=== PATIENT | female | born 1990 | race Caucasian/White ===

== ENCOUNTER 2017-04-10 20:04 | Emergency (ER) | payer MEDICAID, SELFPAY ==
[2017-04-10 20:06] VITALS: BP 151/85; PULSE 107; RESP 22; TEMP 36.8; O2SAT 100; BMI 38.9
--- NOTE | 2017-04-10 20:28 | RAD_ITS ---
STUDY: X-RAY CHEST REASON FOR EXAM: Female, 26 years old. Cough TECHNIQUE: PA and lateral views of the chest. COMPARISON: Previous study of 01/23/2015 FINDINGS: There is a stable 1.1 cm nodule of the left lower lobe. There is bilateral perihilar peribronchial cuffing. There is no demonstrated pleural abnormality. Normal size heart. Normal mediastinum and fernanda. Normal visualized pulmonary arteries. Normal visualized aortic arch and descending thoracic aorta. Normal visualized thoracic spine. Normal visualized ribs, clavicles, and shoulders. There is no demonstrated abnormality of the visualized soft tissue structures of the upper abdomen. RAD/Chest PA and Lateral IMPRESSION: Bilateral perihilar peribronchial cuffing which may be associated with bronchitis or bronchospastic disease. Stable 1.1 cm nodule of the left lower lobe. Electronically Signed: Charles Manuel MD at 21:05 EST , Service support ,
[2017-04-10] MEDS: Ipratropium/Albuterol Sulfate 3 ML AMPUL.NEB INHALATION (20:39)
[2017-04-10 20:40] VITALS: PULSE 99; RESP 18
--- NOTE | 2017-04-10 21:47 | ED.DCSUM_ITS ---
- ER Visit Summary Date of Service: 04/10/17 Chief Complaint: Cough and head congestion History of Present Illness: The patient is a 26 F with a four-day history of cough, head congestion, shortness of breath with wheezing. Patient states she was seen at urgent care 4 days ago and told she had a viral URI. She is currently on prednisone. She feels that she is not improving and may be even worsening. She does report having intermittent wheezing. She reports very minimal sputum production and denies significant chest congestion. She states she has had a low-grade fever up to 100.9 and has had chills. Physical Examination: Blood pressure is 151/85, temperature 98.2, heart rate 107 , respiratory rate 22, pulse ox 100% on room air. Patient is in no acute distress. Head and neck examination is remarkable for some mild posterior pharyngeal drainage. TMs are clear bilaterally. Heart is regular rate and rhythm. Palpable pulses are noted throughout. Lungs are clear with good air movement throughout. Abdomen is soft and nontender. Bowel sounds are noted. Extremity examination is unremarkable with full range of motion. Neurologic examination reveals no focal deficits. Test Results: Two-view chest x-ray reveals bilateral perihilar peribronchial cuffing which may be associated with bronchitis or bronchospasm. There is a stable 1.1 cm nodule in the left lower lobe. Emergency Department Course and Treatment: Patient was given a DuoNeb treatment here. On repeat evaluation she reports minimal improvement. Should be given albuterol inhaler for home and will be written Tessalon Perles to help control her cough. She does not want anything that sedates her due to the need to care for her children. She was advised her symptoms are all viral in nature and antibiotics will not be beneficial. She is given a work note for tomorrow. Treatment Plan: [] Disposition: Discharge Impression: Viral bronchitis This note was generated with [employer] dictation software. It may contain incorrect words, spelling, and punctuation that were not noted in review of the chart prior to signing ED Disposition - Plan for ED Patient: Disposition: Home or Assisted Living Chief Complaint: Cough Instructions: ED Upper Resp Infec No Abx Tx Prescriptions: Albuterol Inhaler [Ventolin Hfa] 1 - 2 puff INHALATION Q4H PRN PRN #1 inhaler PRN Reason: Wheezing Benzonatate [Tessalon Perle] 200 mg PO TID PRN PRN #20 capsule PRN Reason: Cough Referrals: Ben Holt DO [Primary Care Provider] - 1 Week if not improving
--- NOTE | 2017-04-10 21:51 | DCINST.ED_ITS ---
ED Disposition - Plan for ED Patient: Disposition: Home or Assisted Living Chief Complaint: Cough Instructions: ED Upper Resp Infec No Abx Tx Prescriptions: Albuterol Inhaler [Ventolin Hfa] 1 - 2 puff INHALATION Q4H PRN PRN #1 inhaler PRN Reason: Wheezing Benzonatate [Tessalon Perle] 200 mg PO TID PRN PRN #20 capsule PRN Reason: Cough Referrals: Ben Holt DO [Primary Care Provider] - 1 Week if not improving
[2017-04-10] MEDS: Benzonatate 100 MG Capsule 200 MG PO (21:56)
[2017-04-10 21:57] VITALS: BP 137/91; PULSE 114; RESP 16; O2SAT 99
== END 2017-04-10 21:59 | disposition home or self-care (01) ==
PROVIDERS: Emergency Provider Emergency Medicine; Family Provider Student in an Organized Health Care Education/Training Program; PCP Student in an Organized Health Care Education/Training Program
DX: J20.8 Acute bronchitis due to other specified organisms (principal); R91.1 Solitary pulmonary nodule; K58.9 Irritable bowel syndrome, unspecified; G43.909 Migraine, unspecified, not intractable, without status migrainosus; F31.9 Bipolar disorder, unspecified; K21.9 Gastro-esophageal reflux disease without esophagitis; Z79.52 Long term (current) use of systemic steroids; Z79.899 Other long term (current) drug therapy; Z87.891 Personal history of nicotine dependence
CPT/HCPCS: 71046; 94640; 99283

== ENCOUNTER 2017-06-09 18:15 | Emergency (ER) | payer MEDICAID, SELFPAY ==
[2017-06-09 18:16] VITALS: BP 129/80; PULSE 75; RESP 16; TEMP 36.7; O2SAT 99; BMI 40.4
--- NOTE | 2017-06-09 19:10 | CT_ITS ---
STUDY: CT ABDOMEN AND PELVIS WITH CONTRAST REASON FOR EXAM: Female, 26 years old. Right upper quadrant pain. RADIATION DOSAGE (If Supplied By Facility): CTDIvol = ( 16.51 ) mGy, DLP = ( 957.91 ) mGycm TECHNIQUE: Transaxial images were obtained from the dome of the diaphragm to the symphysis pubis with oral contrast. 100 ml of Isovue 300 contrast was administered. Sagittal and coronal images were reconstructed. Individualized dose optimization techniques were used for this CT. COMPARISON: None. FINDINGS: There is left lower lung granuloma. The visualized portions of the heart are within normal limits. Normal liver. There is non-visualization of the gallbladder, which may be secondary to either contraction or a prior cholecystectomy. There is a benign calcified granuloma of the spleen. Normal pancreas. Normal bilateral adrenal glands. Normal right kidney. Normal left kidney. Normal visualized stomach. Normal small intestine. Normal colon. The appendix is visualized and appears normal. Normal abdominal aorta. Normal inferior vena cava. Normal retroperitoneum. Normal urinary bladder. Normal visualized uterus. There are adnexal follicles. Normal abdominal wall. Normal osseous structures. CT/Abdomen/Pelvis WITH Contrast IMPRESSION: Normal enhanced CT of the abdomen and pelvis. No mass or obstruction. No hydronephrosis. Adnexal follicles. Electronically Signed: Scotty Griffin MD at 21:23 EDT , Service support ,
--- NOTE | 2017-06-09 19:15 | ED.DCSUM_ITS ---
- ER Visit Summary Date of Service: 06/09/17 Chief Complaint: Abdominal pain History of Present Illness: The patient is a 26 F presenting with abdominal pain that worsened since 1030 this morning. She states she has had intermittent pain over last couple weeks but worsened today. She has nausea with no vomiting. Denies diarrhea or constipation. She has dysuria and urinary frequency. She has a history of previous cholecystectomy. She denies fever or other complaints. Physical Examination: Vitals are stable. Patient is afebrile. Alert no acute distress. HEENT exam is unremarkable. Neck is supple. Lungs are clear and equal bilaterally. Heart is regular rate and rhythm. Abdomen is soft right upper quadrant tenderness with no rebound or guarding. Extremities are unremarkable. Skin is warm and dry. No focal neurologic deficit. Remainder of exam is unremarkable. Emergency Department Course and Treatment: CBC, chemistries unremarkable. Liver lipase are normal. Urinalysis shows 10-25 white blood cells, also 10-25 epithelial cells. HCG is negative. She is given IV fluids and Zofran. CT abdomen pelvis with IV and oral contrast shows no acute process. On repeat exam she has mild tenderness with no rebound or guarding. She is given prescription for Bentyl and Zofran. Her urine is contaminated but she does have dysuria and frequency. She will be given a course of Macrobid. She is advised to follow-up with her primary care physician. Advised return to ED if worsening complaints. Disposition: Discharge home Impression: Abdominal pain, UTI This note was generated with [employer] dictation software. It may contain incorrect words, spelling, and punctuation that were not noted in review of the chart prior to signing ED Disposition - Plan for ED Patient: Chief Complaint: Abd Pain Instructions: ED Abdominal Pain Unkn Cause Prescriptions: Ondansetron [Zofran Odt] 4 mg PO Q8H PRN PRN #10 tablet PRN Reason: Nausea Dicyclomine HCl [Bentyl] 20 mg PO TIDAC #20 capsule Nitrofurantoin Macrocrystals [Macrobid] 100 mg PO Q12 #14 capsule Referrals: Ben Holt DO [Primary Care Provider] -
[2017-06-09] MEDS: 0.9% Normal Saline 1,000 ML 1000 ML IV (19:29)
[2017-06-09] MEDS: Ondansetron 4 MG/2 ML Vial IV (19:29)
[2017-06-09 19:43] LABS: Absolute Lymphocyte Count 2.73 X10^3/ul (0.83-4.51); Absolute Neutrophil Count 3.8 X10^3/uL (2.0-7.7); Basophil# 0.03 X10^3/uL; Basophil% 0.4 % (0-1); Eosinophil# 0.13 X10^3/uL; Eosinophils% 1.9 % (0-5); Lymphocyte # 2.73 X10^3/ul (4.0); Mean Corp Hgb Conc 32.5 g/gl (32-36); Mean Corpuscular Hgb 28.1 pg (27.0-32.0); Mean Corpuscular Volume 86.4 fL (81-99); Mean Platelet Vol. 9.9 fl (6.2-12.0); Monocyte# 0.28 X10^3/uL; Neutrophil # 3.83 X10^3/uL (2.7-7.7); Neutrophil % 54.7 % (47-70); Platelet Count 248 K/mm3 (150-450); RBC Distribution Width CV 13.6 % (11.6-14.6); Red Blood Count 4.63 M/mm3 (4.2-5.4)
[2017-06-09 19:44] LABS: POSITIVE COUNT NO; POSITIVE DIFFERENTIAL NO; POSITIVE MORPHOLOGY NO
[2017-06-09 19:44] LABS: Red Blood Cells-Urine 0 SEEN /hpf (0-5)
[2017-06-09 19:58] LABS: Color, Urine Yellow (Yellow); Glucose, Dipstick Normal (Normal); Ketone-Dipstick Negative (Negative); Leukocyte Esterase-Dipstick 500 /ul (Negative); Nitrite-Dipstick Negative (Negative); Occult Blood-Urine Negative /ul (Negative); Protein-Dipstick Negative (Negative); Urine Bilirubin Dipstick Negative (Negative); Urine Clarity Sl. Cloudy (Clear); Urine Urobilinogen Normal (Normal)
[2017-06-09 20:15] VITALS: RESP 16
[2017-06-09 20:19] LABS: Bacteria RARE /hpf (None Seen); Mucous, Urine RARE /hpf (<or=2+); Squamous Epithelial Cells - UA 10-25 SEEN /hpf (5-10); White Blood Cells 10-25 SEEN /hpf (0-5)
[2017-06-09 20:20] LABS: Amorphous Sediment 1+ URATE
[2017-06-09 20:21] LABS: AST(SGOT) 13 U/L (15-37); Alanine Aminotransfer ALT/SGPT 23 U/L (13-56); Albumin, Serum 3.7 g/dL (3.2-5.0); Alkaline Phosphatase 118 U/L (45-117); Anion Gap 6 (5-15); BUN 9 mg/dL (7-18); BUN/Creat Ratio 13.9 RATIO (10-20); Bilirubin, Direct 0.08 mg/dL (0.00-0.30); Calcium,Total 8.2 mg/dL (8.5-10.1); Chloride 108 mmol/L (98-107); Creatinine, Serum 0.65 mg/dL (0.55-1.02); EST Glomerular Filtration Rate 117 mL/min (>60); Est Glom Filt Rate - Afr Amer 142 mL/min (>60); Estimated Creatinine Clearance 94.21 ml/min; Globulin 3.7 g/dL (2.2-4.2); Glucose 85 mg/dL (74-106); Lipase 102 U/L (73-393); Potassium 3.8 mmol/L (3.5-5.1); Protein, Total 7.4 g/dL (6.4-8.2); Sodium Level 139 mmol/L (136-145)
[2017-06-09 20:28] LABS: Pregnancy, Serum, hCG Quali. NEGATIVE Negative (0-9 Nonpreg)
--- NOTE | 2017-06-09 22:00 | ED.DEP ---
ED Disposition - Plan for ED Patient: Chief Complaint: Abd Pain Instructions: ED Abdominal Pain Unkn Cause Prescriptions: Ondansetron [Zofran Odt] 4 mg PO Q8H PRN PRN #10 tablet PRN Reason: Nausea Dicyclomine HCl [Bentyl] 20 mg PO TIDAC #20 capsule Nitrofurantoin Macrocrystals [Macrobid] 100 mg PO Q12 #14 capsule Referrals: Ben Holt DO [Primary Care Provider] -
[2017-06-09 22:09] VITALS: BP 116/63; PULSE 72; RESP 18; O2SAT 100
[2017-06-09] MEDS: Nitrofurantoin Macrocrystals 100 MG Capsule PO (22:13)
== END 2017-06-09 22:17 | disposition home or self-care (01) ==
PROVIDERS: Emergency Provider Emergency Medicine; Family Provider Student in an Organized Health Care Education/Training Program; PCP Student in an Organized Health Care Education/Training Program
DX: N39.0 Urinary tract infection, site not specified (principal); R11.0 Nausea; K58.9 Irritable bowel syndrome, unspecified; K21.9 Gastro-esophageal reflux disease without esophagitis; F32.9 Major depressive disorder, single episode, unspecified; Z79.899 Other long term (current) drug therapy; Z90.49 Acquired absence of other specified parts of digestive tract
CPT/HCPCS: 74177; 80048; 80076; 81001; 83690; 84703; 85025; 96361; 96374; 99283; J7030; Q9967; A4216; J2405

== ENCOUNTER 2018-07-24 00:24 | Emergency (ER) | payer MEDICAID, SELFPAY ==
[2018-07-24 00:26] VITALS: BP 124/81; PULSE 92; RESP 16; TEMP 37; O2SAT 100; BMI 38.7
--- NOTE | 2018-07-24 01:18 | ED.VISSUMM ---
- ER Visit Summary Date of Service: 07/24/18 Chief Complaint: Pelvic pain, History of Present Illness: The patient is a 27 F who presents with pelvic pain. She is about 6 weeks by dates. She is G2, P1 with prior . She had some mild pelvic cramping. Tonight she began to have some light vaginal bleeding. She also complains of some dysuria. No fevers chest pain shortness of breath vomiting diarrhea. Physical Examination: Afebrile vitals unremarkable Moist mucous membranes Heart regular rate and rhythm Lungs are clear Abdomen soft nontender Alert Test Results: UA shows 25 blood otherwise normal. Quantitative hCG 6724. Blood type O+ per prior records. Pelvic ultrasound shows a single intrauterine gestation at 5 weeks 5 days no heart motion. Emergency Department Course and Treatment: Patient underwent the above work-up. She was advised of the pelvic ultrasound findings. She was advised that she will need to have repeat ultrasound and quantitative hCG. She was advised to call her color repairer later today. She understands to return for new or worsening symptoms and was instructed on specific signs and symptoms to monitor for. Treatment Plan: [] Disposition: Discharge Impression: Intrauterine This note was generated with [employer] dictation software. It may contain incorrect words, spelling, and punctuation that were not noted in review of the chart prior to signing ED Disposition - Plan for ED Patient: Referrals: Ben Holt DO [Primary Care Provider] -
--- NOTE | 2018-07-24 01:19 | US_ITS ---
HISTORY: Pelvic Pain, bleeding, EXAMINATION: US OB Transvaginal LMP: Unknown Beta-hCG: Unknown TECHNIQUE: Transvaginal pelvic ultrasound was performed. COMPARISON: None FINDINGS: Single intrauterine gestational sac measuring 1 cm in diameter with gestational age by ultrasound of 5 weeks and 5 day. A yolk sac is present. No embryo or heart motion she had seen. The uterus measures 8.4 x 3.5 x 4.5 cm in longitudinal, AP, and transverse dimensions, respectively. The uterine cervix remains closed. Both ovaries are identified with the right measuring 4.3 x 2.1 x 3.4 cm and the left measuring 3.2 x 2.6 x 2.5 cm. Bilateral ovarian blood flow. Tiny free fluid within the posterior cul-de-sac. US/Transvaginal w/Preg US IMPRESSION: 1. Single intrauterine gestational sac with gestational age by ultrasound of 5 weeks and 5 days. 2. No embryo or heart motion currently identified. Suggest follow-up pelvic ultrasound to confirm viability. 3. Tiny free pelvic fluid. 4. The uterine cervix remains closed. at 0337 Reported and signed by: Shaheed Siddiqui MD Electronically Signed: Shaheed Siddiqui, at 3:36 EDT Tel , Service support ,
[2018-07-24 01:26] LABS: Bacteria 0 SEEN /hpf (None Seen); Mucous, Urine 0 SEEN /hpf (<or=2+); Red Blood Cells-Urine 0 SEEN /hpf (0-5); Squamous Epithelial Cells - UA 0 SEEN /hpf (5-10); White Blood Cells 0 SEEN /hpf (0-5)
[2018-07-24 01:29] LABS: Color, Urine Straw (Yellow); Glucose, Dipstick Normal (Normal); Ketone-Dipstick Negative (Negative); Leukocyte Esterase-Dipstick Negative /ul (Negative); Nitrite-Dipstick Negative (Negative); Occult Blood-Urine 25 /ul (Negative); Protein-Dipstick Negative (Negative); Specific Gravity, Urine 1.005 (1.002-1.030); Urine Bilirubin Dipstick Negative (Negative); Urine Clarity Clear (Clear); Urine Urobilinogen Normal (Normal)
[2018-07-24 02:21] LABS: hCG Titer Quant., Serum 6724 mIU/mL (1-3)
[2018-07-24 02:55] VITALS: BP 110/50; PULSE 70; RESP 14; O2SAT 96
--- NOTE | 2018-07-24 04:03 | ED.DEP ---
ED Disposition - Plan for ED Patient: Instructions: ED Miscarriage Poss Referrals: Ben Holt DO [Primary Care Provider] -
[2018-07-24 04:11] VITALS: BP 120/59; PULSE 78; RESP 18; O2SAT 98
== END 2018-07-24 04:11 | disposition home or self-care (01) ==
PROVIDERS: Emergency Provider Emergency Medicine; Family Provider Student in an Organized Health Care Education/Training Program; PCP Student in an Organized Health Care Education/Training Program
DX: O26.891 Other specified pregnancy related conditions, first trimester (principal); R10.2 Pelvic and perineal pain; R30.0 Dysuria; Z67.40 Type O blood, Rh positive; Z79.899 Other long term (current) drug therapy; Z3A.01 Less than 8 weeks gestation of pregnancy
CPT/HCPCS: 76817; 81001; 84702; 99285; A4216

== ENCOUNTER → 2018-07-27 17:18 | Outpatient (CLI) | payer MEDICAID, SELFPAY ==
[2018-07-24 00:26] VITALS: BMI 38.7
[2018-07-28 09:07] LABS: hCG Titer Quant., Serum 17432 mIU/mL (1-3)
== END ==
PROVIDERS: Family Provider Student in an Organized Health Care Education/Training Program; PCP Student in an Organized Health Care Education/Training Program; Referring Provider Obstetrics & Gynecology; Visit Provider Obstetrics & Gynecology
DX: O20.0 Threatened abortion (principal); Z3A.00 Weeks of gestation of pregnancy not specified
CPT/HCPCS: 36415; 84702; 84703

== ENCOUNTER 2019-02-06 14:25 | Outpatient (CLI) | payer MEDICAID, SELFPAY ==
[2019-02-06 14:49] LABS: Mucous, Urine 0 SEEN /hpf (<or=2+); Red Blood Cells-Urine 0 SEEN /hpf (0-5)
[2019-02-06 14:53] LABS: Color, Urine Yellow (Yellow); Glucose, Dipstick Normal (Normal); Ketone-Dipstick 5 mg/dl (Negative); Leukocyte Esterase-Dipstick 25 /ul (Negative); Nitrite-Dipstick Negative (Negative); Occult Blood-Urine Negative /ul (Negative); Protein-Dipstick 15 mg/dl (Negative); Specific Gravity, Urine 1.015 (1.002-1.030); Urine Bilirubin Dipstick Negative (Negative); Urine Clarity Clear (Clear); Urine Urobilinogen Normal (Normal); Urine pH 6.5 (5.0 - 8.0)
[2019-02-06 15:01] LABS: Bacteria 1+ /hpf (None Seen); Squamous Epithelial Cells - UA 5-10 SEEN /hpf (5-10); White Blood Cells 0-5 SEEN /hpf (0-5)
[2019-02-06 15:04] VITALS: BMI 38.2
[2019-02-06] MEDS: Lactated Ringers 500 ML IV.SOLN. 1000 ML IV (15:45)
[2019-02-06] MEDS: Acetaminophen 500 MG Tablet 1000 MG PO (15:55)
[2019-02-06 16:04] LABS: Protein, Urine (Random) 11.2 mg/dL (<11.9); Protein:Creat Ratio 166 mg/g CRE (0-200)
--- NOTE | 2019-02-07 09:46 | OB.TRI.HP_ITS ---
History of Present Illness Date of Service: 02/06/19 Was patient seen by the physician?: No Reason For Visit: rule out labor Date of Service: 02/06/19 Final SHANELLE: 03/21/19 Final SHANELLE Source: US <20 weeks Gestational age: 34 Weeks and 0 Days Allergies adhesive tape Allergy (Verified 07/24/18 00:26) Rash sulfamethoxazole [From Novra] Allergy (Verified 07/24/18 00:26) Unknown trimethoprim [From Septra] Allergy (Verified 07/24/18 00:26) Unknown Laboratory Studies: Laboratory Tests 02/06/19 02/06/19 Range/Units 15:25 14:35 Urine Color Yellow (Yellow) Urine Clarity Clear (Clear) Urine pH 6.5 (5.0 - 8.0) Ur Specific [place] 1.015 (1.002-1.030) Urine Protein 15 H (Negative) mg/dl Urine Glucose (UA) Normal (Normal) mg/dl Urine Ketones 5 H (Negative) mg/dl Urine Occult Blood Negative (Negative) /ul Urine Nitrite Negative (Negative) Urine Bilirubin Negative (Negative) mg/dL Urine Urobilinogen Normal (Normal) mg/dl Ur Leukocyte Esterase 25 H (Negative) /ul Urine RBC 0 SEEN (0-5) /hpf Urine WBC 0-5 SEEN (0-5) /hpf Ur Squamous Epith Cells 5-10 SEEN (5-10) /hpf Urine Bacteria 1+ (None Seen) /hpf Urine Mucus 0 SEEN (<or=2+) /hpf U Random Total Protein 11.2 (<11.9) mg/dL Urine Creatinine 67.50 (NO RANGE EST.) mg/dL Protein/Creatinin Ratio 166 (0-200) mg/g CRE NST - FHR Rate Baby A Baseline: 140 Variability:: Moderate Accelerations:: 15 x 15 Decelerations:: None NST Reactive:: Yes FHR Category:: Category I Uterine Activity:: occasional Impression/Plan 28yo @ 33.6 wks- false labor, decreased FM 1) Dc home well being established 2) urine prot /creat ratio wnl
== END 2019-02-06 16:56 | disposition other institution (70) ==
LOC: WPOUT 14:29 → OBT 14:30
PROVIDERS: Family Provider Student in an Organized Health Care Education/Training Program; PCP Student in an Organized Health Care Education/Training Program; Referring Provider Obstetrics & Gynecology; Visit Provider Obstetrics & Gynecology
DX: O47.03 False labor before 37 completed weeks of gestation, third trimester (principal); O36.8130 Decreased fetal movements, third trimester, not applicable or unspecified; Z3A.33 33 weeks gestation of pregnancy; Z88.2 Allergy status to sulfonamides; Z88.1 Allergy status to other antibiotic agents
CPT/HCPCS: 59025; 59050; 81001; 82570; 84156; 87086; 87088; 99218; G0378

== ENCOUNTER 2019-02-08 20:07 | Observation (INO) | payer MEDICAID, SELFPAY ==
[2019-02-08 16:15] VITALS: BMI 32.5
[2019-02-08] MEDS: Lactated Ringers 1,000 ML 999 ML IV (16:25)
[2019-02-08 16:52] LABS: Hematocrit 34.8 % (37-47); Hemoglobin 11.3 g/dL (12.0-15.0); Mean Corp Hgb Conc 32.5 g/dL (32-36); Mean Corpuscular Hgb 28.3 pg (27.0-32.0); Mean Corpuscular Volume 87.2 fL (81-99); Mean Platelet Vol. 10.4 fl (6.2-12.0); Platelet Count 261 K/mm3 (150-450); RBC Distribution Width CV 14.3 % (11.6-14.6); RBC Distribution Width SD 45.6 fl (35.1-43.9); Red Blood Count 3.99 M/mm3 (4.2-5.4); White Blood Count 10.1 K/mm3 (4.4-11.0)
[2019-02-08 16:58] LABS: Protein, Urine (Random) 10.2 mg/dL (<11.9); Protein:Creat Ratio 364 mg/g CRE (0-200)
[2019-02-08 17:10] LABS: AST(SGOT) 14 U/L (15-37); Alanine Aminotransfer ALT/SGPT 19 U/L (13-56); Creatinine, Serum 0.43 mg/dL (0.55-1.02); EST Glomerular Filtration Rate 185 mL/min (>60); Est Glom Filt Rate - Afr Amer 224 mL/min (>60); Uric Acid 3.3 mg/dL (2.6-6.0)
[2019-02-08 17:15] LABS: Prothrombin Time (Protime)PT. 13.1 SECONDS (11.7-14.9)
[2019-02-08 17:16] LABS: Partial Thromboplast Time 24.8 Seconds (24.1-36.2)
[2019-02-08] MEDS: HYDROmorphone 1 MG/ML Syringe IV (17:44)
[2019-02-08] MEDS: Betamethasone/Betamethasone 30 MG/5 ML Vial 12 MG IM (19:19)
--- NOTE | 2019-02-08 19:25 | PCM.HP.OB ---
- Problem List (1) History of delivery affecting Status: Acute (2) Morbid obesity Status: Acute (3) Raynaud disease Status: Acute (4) HPV (human papilloma virus) infection Status: Acute (5) History of depression Status: Chronic (6) Headache Status: Acute (7) Proteinuria affecting Status: Acute History Date of Admission: 02/08/19 Final SHANELLE: 03/21/19 Final SHANELLE Source: LMP Gestational age: 34 Weeks and 1 Days History of this : This is a 28 year-old, G [2], P [1001], at 34w1d weeks gestational age by LMP. Presented to office visit today with complaint of headache, given Reglan and Fioricet and to take at home. BP stable, no scotoma, or RUQ pain. History of migraines but states she has not had any migraines during this and this feels different. Patient returned in the afternoon for complaint of headache unrelieved by treatment. Sent to labor and delivery for evaluation and labs. Patient in triage and given Dilaudid 1mg IV, 1 liter of LR bolus, and headache only with mild improvement. Elevated PC ratio also. Decision to keep patient for observation and possible induction of labor. Allergies adhesive tape Allergy (Verified 07/24/18 00:26) Rash sulfamethoxazole [From Septra] Allergy (Verified 07/24/18 00:26) Unknown trimethoprim [From Novra] Allergy (Verified 07/24/18 00:26) Unknown Home Medications: Home Medications Vits [Prenatabs FA] 1 tablet PO DAILY 07/24/18 Acetaminophen [Tylenol] 650 mg PO PRN PRN 02/06/19 Famotidine [Pepcid] 20 mg PO BID PRN 02/06/19 Smoking Status: Never smoker Alcohol: None Number of Fetus(es): 1 NST - FHR Rate Baby A Baseline: 135 Variability:: Moderate Accelerations:: 15 x 15 Decelerations:: None FHR Category:: Category I Uterine Activity:: Irregular uterine contractions History Past Pregnancies: Past Pregnancies Delivery Date Name GA/ Weeks Outcome Route Wt Sex Labor Length Anesthesia Delivery Location Provider FOB Labs: 1hr GCT 88 O positive RPR negative Rubella Immune HBsAG negative HIV negative Urine tox screen negative Expected Delivery Method: Spontaneous Vaginal Review of Systems Constitutional: Denies: Chills, Fever, Weight Change Eyes: Reports: Blurred vision - No scotoma. States vision is just more blurry than normal at times. HEENT: Reports: Head Aches - Rating 7/10 after 1mg Dilaudid Cardiovascular: Denies: Chest Pain Respiratory: Denies: Cough, Shortness of breath at rest Gastrointestinal: Denies: Abdominal Pain Genitourinary: Denies: Dysuria Neurological: Denies: Numbness, Tingling, Focal weakness Psychiatric: Denies: Anxiety, Depression, Homicidal Ideations, Suicidal Ideations Physical Exam Vitals: Laboratory Results 02/08/19 02/08/19 02/08/19 16:25 16:25 16:25 WBC RBC Hgb Hct MCV MCH MCHC RDW Std Deviation RDW Coeff of Lissette Plt Count MPV PT 13.1 INR 1.0 APTT 24.8 Creatinine 0.43 L Est GFR (MDRD) Af Amer 224 Est GFR (MDRD) Non-Af 185 Uric Acid 3.3 AST 14 L ALT 19 U Random Total Protein 10.2 Urine Creatinine 28.00 Protein/Creatinin Ratio 364 H 02/08/19 16:25 WBC 10.1 RBC 3.99 L Hgb 11.3 L Hct 34.8 L MCV 87.2 MCH 28.3 MCHC 32.5 RDW Std Deviation 45.6 H RDW Coeff of Lissette 14.3 Plt Count 261 MPV 10.4 PT INR APTT Creatinine Est GFR (MDRD) Af Amer Est GFR (MDRD) Non-Af Uric Acid AST ALT U Random Total Protein Urine Creatinine Protein/Creatinin Ratio General: Alert, Oriented x3, No apparent distress HEENT: Atraumatic, Normocephalic Cardiovascular: Regular rate, Regular Rhythm, No murmurs Lungs: Clear to auscultation, Normal air movement, No rhonchi, No wheeze Abdomen: Bowel Sounds Present, Non Tender, Gravid Extremities:: No edema Neurological: - - DTR +1/4 bilateral patellar. Negative for: Clonus [employer]: Normal external genitalia Estimated gestational size: Appropriate for gestational size Assessment/Plan All Active Problems History of delivery affecting (Acute) Morbid obesity (Acute) Raynaud disease (Acute) HPV (human papilloma virus) infection (Acute) Headache (Acute) Proteinuria affecting (Acute) This is a 28 year-old, G [2], P [1001], at 34 weeks 1 day gestational age. Headache Proteinuria P: 1) Admit for observation 2) Betamethasone 12mg IM once now, repeat dose in 24 hr 3) Preeclampsia labs in am at 0600. Start 24hr urine now. 4) NST q shift. BP every 4 hours 5) Rapid GBS collected 6) Start Acyclovir 400mg PO BID 7) Consulted and referral for management of care.
[2019-02-08] MEDS: Acyclovir 200 MG Capsule 400 MG PO (21:35)
[2019-02-08 23:05] LABS: Group B Strep DNA By PCR Negative (Negative); Internal Control PASS; Probe Check PASS; Specimen Processing Control PASS
[2019-02-09 05:41] LABS: Uric Acid 3.7 mg/dL (2.6-6.0)
[2019-02-09 05:48] LABS: ALB/GLOB Ratio 0.7 RATIO (0.9-2.4); AST(SGOT) 15 U/L (15-37); Alanine Aminotransfer ALT/SGPT 25 U/L (13-56); Albumin, Serum 2.7 g/dL (3.2-5.0); Alkaline Phosphatase 178 U/L (45-117); Anion Gap 9 (5-15); BUN 3 mg/dL (7-18); Chloride 107 mmol/L (98-107); Creatinine, Serum 0.43 mg/dL (0.55-1.02); EST Glomerular Filtration Rate 187 mL/min (>60); Est Glom Filt Rate - Afr Amer 226 mL/min (>60); Estimated Creatinine Clearance 175.27 ml/min; Globulin 4.1 g/dL (2.2-4.2); Glucose 104 mg/dL (74-106); Potassium 3.8 mmol/L (3.5-5.1); Protein, Total 6.8 g/dL (6.4-8.2); Sodium Level 138 mmol/L (136-145)
[2019-02-09 05:55] LABS: Prothrombin Time (Protime)PT. 13.2 SECONDS (11.7-14.9)
[2019-02-09 05:56] LABS: Partial Thromboplast Time 26.4 Seconds (24.1-36.2)
[2019-02-09] MEDS: Acetaminophen 500 MG Tablet 1000 MG PO (06:33)
[2019-02-09] MEDS: 0.9% Saline Lock 10 ML Syringe IV (06:33)
--- NOTE | 2019-02-09 08:15 | PCM.PN.OB ---
Patient Problems: Active and Suspected Problems History of delivery affecting (Acute) Morbid obesity (Acute) Raynaud disease (Acute) HPV (human papilloma virus) infection (Acute) Headache (Acute) Proteinuria affecting (Acute) Subjective: Patient complaining of some contractions since 4 AM. No gross vaginal bleeding or leaking of fluid. States she has some blurry vision because of the headache. Headache is ranged from a 7 to an 8 out of 10. It was up to a 9 earlier when the contractions started. She had one emesis but she states she gagged on the Tylenol, she has a hard time taking pills. She denies any diarrhea. She denies any nausea. She was able to eat dinner. Denies any fevers or chills. - Physical Exam Vitals/I&O's: Weight: 88.904 kg Body Mass Index (BMI) 32.5 Intake and Output for Last 24 Hours 02/07/19 02/08/19 02/09/19 23:59 23:59 23:59 Intake Total 1000 / 1000 Balance 1000 / 1000 General: Alert, Oriented x3, Cooperative, - - Sitting up alert in bed, interactive, watching TV. Abdomen: Soft, Non-Distended, Gravid, Appropriate for Gestational Age Extremities: Edema - Trace, - - 2+ DTRs, no clonus Neurological: Cranial nerves II-XII grossly intact, Deep Tendon Reflexes 2+/4 and Symmetrical, Muscle tone normal Psych/Mental Status: Normal Affect Laboratory Results 02/08/19 16:25: WBC 10.1, RBC 3.99 L, Hgb 11.3 L, Hct 34.8 L, MCV 87.2, MCH 28.3, MCHC 32.5, RDW Std Deviation 45.6 H, RDW Coeff of Lissette 14.3, Plt Count 261, MPV 10.4 02/08/19 16:25: PT 13.1, INR 1.0, APTT 24.8 02/08/19 16:25: U Random Total Protein 10.2, Urine Creatinine 28.00, Protein/Creatinin Ratio 364 H 02/08/19 16:25: Creatinine 0.43 L, Est GFR (MDRD) Af Amer 224, Est GFR (MDRD) Non-Af 185, Uric Acid 3.3, AST 14 L, ALT 19 02/08/19 20:25: Group B Strep DNA Negative, Specimen Comment Not Reportable 02/09/19 05:09: PT 13.2, INR 1.0, APTT 26.4 02/09/19 05:09: Uric Acid 3.7 02/09/19 05:09: Sodium 138, Potassium 3.8, Chloride 107, Carbon Dioxide 22.0, Anion Gap 9, BUN 3 L, Creatinine 0.43 L, Estim Creat Clear Calc 175.27, Est GFR (MDRD) Af Amer 226, Est GFR (MDRD) Non-Af 187, BUN/Creatinine Ratio 7.0 L, Glucose 104, Calcium 9.0, Total Bilirubin 0.40, AST 15, ALT 25, Alkaline Phosphatase 178 H, Total Protein 6.8, Albumin 2.7 L, Globulin 4.1, Albumin/Globulin Ratio 0.7 L 02/09/19 05:09: Blood Type O POSITIVE, Antibody Screen NEGATIVE Current Medications Acyclovir (Zovirax) 400 mg PO BID [facility] Last Admin: 02/08/19 21:35 Dose: 400 mg Documented by: Betamethasone Acet/Betameth SodPhos (Celestone) 12 mg IM Q24H [facility] Stop: 02/09/19 19:01 Last Admin: 02/08/19 19:19 Dose: 12 mg Documented by: Sodium Chloride () 10 ml IV Q12 [facility] Last Admin: 02/09/19 06:33 Dose: 10 ml Documented by: Medical Necessity - Tobacco Use Smoking Status: Never smoker Assessment/Plan All Active Problems History of delivery affecting (Acute) Morbid obesity (Acute) Raynaud disease (Acute) HPV (human papilloma virus) infection (Acute) Headache (Acute) Proteinuria affecting (Acute) Hospital day #2 status post admission for headache. Headache remains the same despite pain medications given. One emesis, but this was after gagging on Tylenol. No other symptoms or signs of infection. Repeat preeclampsia labs. Official 24-hour urine is pending. Patient is ambulating, talking watching TV and eating without difficulty. She has a history of headaches and migraine headaches. At this point, patient states she has not slept much in the last 24 hours. We will give her a dose of Phenergan to see if this will help her sleep and help with the headache. We will give her liquid Tylenol. ST is reactive. Was having some irregular cramping this morning. This is normal for 34 weeks gestation. Continue observation status for now. At this point, clinically I am not concerned that the patient has severe preeclampsia. Her headache clinically does not correlate with the numeric value that she is placing on it on the pain scale.
[2019-02-09] MEDS: Acetaminophen 650 MG/20 ML UDC 1000 MG PO (08:59)
[2019-02-09] MEDS: proMETHazine 25 MG/ML Syringe 12.5 MG IV (09:00)
[2019-02-09] MEDS: Acyclovir 200 MG Capsule 400 MG PO (09:00)
--- NOTE | 2019-02-09 18:27 | PCM.PN.OB ---
Patient Problems: Active and Suspected Problems History of delivery affecting (Acute) Morbid obesity (Acute) Raynaud disease (Acute) HPV (human papilloma virus) infection (Acute) Headache (Acute) Proteinuria affecting (Acute) Subjective: Patient still complaining of headache. Slept most of the day. Did eat 3 meals without emesis. Denies epigastric pain. Good movement. - Physical Exam Vitals/I&O's: Weight: 88.904 kg Body Mass Index (BMI) 32.5 Intake and Output for Last 24 Hours 02/07/19 02/08/19 02/09/19 23:59 23:59 23:59 Intake Total 1000 / 1000 Balance 1000 / 1000 General: Alert, No apparent distress, - - tired Abdomen: Soft, Non Tender, Non-Distended, Gravid, Appropriate for Gestational Age Extremities: Edema - Trace Neurological: Cranial nerves II-XII grossly intact, Deep Tendon Reflexes 2+/4 and Symmetrical, Clonus - Is absent Laboratory Results 02/08/19 20:25: Group B Strep DNA Negative, Specimen Comment Not Reportable 02/09/19 05:09: PT 13.2, INR 1.0, APTT 26.4 02/09/19 05:09: Uric Acid 3.7 02/09/19 05:09: Sodium 138, Potassium 3.8, Chloride 107, Carbon Dioxide 22.0, Anion Gap 9, BUN 3 L, Creatinine 0.43 L, Estim Creat Clear Calc 175.27, Est GFR (MDRD) Af Amer 226, Est GFR (MDRD) Non-Af 187, BUN/Creatinine Ratio 7.0 L, Glucose 104, Calcium 9.0, Total Bilirubin 0.40, AST 15, ALT 25, Alkaline Phosphatase 178 H, Total Protein 6.8, Albumin 2.7 L, Globulin 4.1, Albumin/Globulin Ratio 0.7 L 02/09/19 05:09: Blood Type O POSITIVE, Antibody Screen NEGATIVE Current Medications Acetaminophen (Tylenol Liquid) 1,000 mg PO Q6H PRN PRN PRN Reason: headache or fever Last Admin: 02/09/19 08:59 Dose: 1,000 mg Documented by: Acyclovir (Zovirax) 400 mg PO BID DARIEL Last Admin: 02/09/19 09:00 Dose: 400 mg Documented by: Betamethasone Acet/Betameth SodPhos (Celestone) 12 mg IM Q24H [facility] Stop: 02/09/19 19:01 Last Admin: 02/08/19 19:19 Dose: 12 mg Documented by: Famotidine (Pepcid) 20 mg PO BID PRN PRN PRN Reason: INDIGESTION Promethazine HCl (Phenergan) 12.5 mg IV Q6H PRN PRN PRN Reason: NAUSEA/VOMITING Last Admin: 02/09/19 09:00 Dose: 12.5 mg Documented by: Sodium Chloride () 10 ml IV Q12 [facility] Last Admin: 02/09/19 06:33 Dose: 10 ml Documented by: Medical Necessity - Tobacco Use Smoking Status: Never smoker Assessment/Plan All Active Problems History of delivery affecting (Acute) Morbid obesity (Acute) Raynaud disease (Acute) HPV (human papilloma virus) infection (Acute) Headache (Acute) Proteinuria affecting (Acute) 28-year-old high risk multigravida at 34+ gestational weeks with history of previous section and headache. Blood pressures are stable. Nonstress test is reactive. Labs are stable. 24-hour urine is finishing, will allow her to be discharged home and follow-up on that tomorrow. Would not deliver based on urine results regardless. At this point, I feel this is more a chronic headache and not a preeclampsia headache. Patient has Reglan and Fioricet at home. States Fioricet made her shaky. I discussed with her that at this point, our options are limited to treat her headache, I would avoid narcotics. They are not indicated generally for headaches especially in the 3rd trimester with a chronic headache picture. Up in the office in 3 days for blood pressure check. Kick counts. Return if symptoms worsen. Will receive second dose of betamethasone this evening. non-Stress test: Baseline: Normal Ability: Moderate Accelerations: Present Decelerations: Absent Reactive: Yes [place]: shows irritability only no regular contractions
[2019-02-09] MEDS: Betamethasone/Betamethasone 30 MG/5 ML Vial 12 MG IM (18:28)
[2019-02-09 21:00] LABS: 24HR. UA Prot. Total Volume 1800 mL; Urine Protein (24 Hour) 18.5 mg/dL (<11.9)
== END 2019-02-09 19:25 | disposition home or self-care (01) ==
LOC: WPOUT 02-09 08:53
PROVIDERS: Admitting Provider Advanced Practice Midwife; Family Provider Student in an Organized Health Care Education/Training Program; PCP Student in an Organized Health Care Education/Training Program; Referring Provider Advanced Practice Midwife; Visit Provider Advanced Practice Midwife
DX: O26.893 Other specified pregnancy related conditions, third trimester (principal); Z3A.34 34 weeks gestation of pregnancy; R51 Headache; O99.213 Obesity complicating pregnancy, third trimester; E66.01 Morbid (severe) obesity due to excess calories; I73.00 Raynaud's syndrome without gangrene
CPT/HCPCS: 96361; 96374; 96375; 36415; 59025; 59050; 80053; 81050; 82565; 82570; 84156; 84450; 84460; 84550; 85027; 85610; 85730; 86850; 86900; 86901; 87077; 87081; 87186; 87653; 96372; 99218; J7120; A4216; G0378; J0702

== ENCOUNTER 2019-03-05 14:10 | Outpatient (CLI) | payer MEDICAID, SELFPAY ==
[2019-03-05 14:30] VITALS: BMI 37.7
[2019-03-05 15:13] LABS: ROM Internal Control Test YES-OK TO RESULT pt. (Internal QC)
[2019-03-05 15:14] LABS: ROM Patient Test Negative (Negative)
--- NOTE | 2019-03-05 15:33 | NURSING ---
Dr. Moura states patient has been ruled out for BP issues in office and is being discharged to go to ED. Not necessary to be seen by MD in triage.
--- NOTE | 2019-03-06 21:23 | OB.TRI.NOTE ---
History of Present Illness Date of Service: 03/05/19 Was patient seen by the physician?: No Reason For Visit: R/O RUPTURE MEMBRANE Date of Service: 03/05/19 Final SHANELLE: 03/21/19 Final SHANLELE Source: LMP Gestational age: 37 5/7 Allergies adhesive tape Allergy (Verified 03/05/19 15:49) Rash sulfamethoxazole [From Novra] Allergy (Verified 03/05/19 15:49) Unknown trimethoprim [From Novra] Allergy (Verified 03/05/19 15:49) Unknown Laboratory Studies: Laboratory Tests 03/05/19 Range/Units 14:45 Vag Amniotic Fld Detect Negative (Negative) NST - FHR Rate Baby A Baseline: 150 Variability:: Moderate Accelerations:: 15 x 15 Decelerations:: None NST Reactive:: Yes FHR Category:: Category I Uterine Activity:: irritability Impression/Plan 28 YOF @ 35 5/7 weeks, high risk multigravida, h/o previous c/s, maternal obesity neg ROM+ test, no evidence of PPROM or labor released to ED for evaluation of illness f/u in office as scheduled or return prn
== END 2019-03-05 15:36 | disposition home or self-care (01) ==
PROVIDERS: Family Provider Student in an Organized Health Care Education/Training Program; PCP Student in an Organized Health Care Education/Training Program; Referring Provider Obstetrics & Gynecology; Visit Provider Obstetrics & Gynecology
DX: O99.213 Obesity complicating pregnancy, third trimester (principal); Z3A.37 37 weeks gestation of pregnancy; O09.93 Supervision of high risk pregnancy, unspecified, third trimester
CPT/HCPCS: 59025; 59050; 84112; 99218; G0378

== ENCOUNTER 2019-03-05 15:46 | Emergency (ER) | payer MEDICAID, SELFPAY ==
[2019-03-05 14:30] VITALS: BMI 37.7
[2019-03-05 15:46] VITALS: BP 116/78; PULSE 117; RESP 20; TEMP 36.7; O2SAT 99; BMI 37.4
--- NOTE | 2019-03-05 16:00 | ED.VISSUMM ---
- ER Visit Summary Date of Service: 03/05/19 Chief Complaint: [Headache] History of Present Illness: The patient is a 28 F [presents the emergency department from the CLINICAL LABORATORY TECHNICIAN department with complaint of a headache that she has had off-and-on for over a month. Patient does have remote history of migraines. Patient states this current headaches are about 2 days ago and has been continuous special involving the front of her head. She describes throbbing. Currently the pain is severe and making it hard for her to sleep. She is had nausea and vomiting associated with it as well as photophobia. At times will have some blurred vision. Patient is 37 weeks and 5 days . Patient is . Patient with history of Raynaud's, depression, migraines, and GERD. Patient has had prior cholecystectomy.] Physical Examination: [HEENT-PERRLA, EOMI. Cranial nerves II through XII grossly intact. TMs clear. Mucous membranes moist. No adenopathy. Cardiovascular-regular rate and rhythm without murmur or ectopy Lungs-clear to auscultation, chest wall stable without crepitus or subcu emphysema Abdomen-normoactive bowel sounds, soft, nontender. Patient has a gravid uterus. Neuro ptxm-wzmrid-aikz and heel bell testing within normal limits, negative Romberg, negative pronator drift, fundi benign Extremities-intact ?4, normal range of motion, normal pulses, atraumatic] Test Results: [Urinalysis ordered showed small amount of protein. Showed some ketones. No signs of infection. MRV of the brain obtained was normal.] Emergency Department Course and Treatment: [Patient given a liter normal saline fluid bolus as well as Reglan 10 mg IV as well as Benadryl 5 mg IV and Tylenol 650 mg p.o. patient feels significantly improved.] Treatment Plan: [Follow-up with primary care physician and CLINICAL LABORATORY TECHNICIAN within next 3 to 5 days.] Disposition: [Discharged home in stable condition] Impression: [Migrainous cephalgia] This note was generated with [employer] dictation software. It may contain incorrect words, spelling, and punctuation that were not noted in review of the chart prior to signing ED Disposition - Plan for ED Patient: Referrals: Ben Holt DO [Primary Care Provider] -
[2019-03-05 16:26] LABS: Red Blood Cells-Urine 0 SEEN /hpf (0-5); White Blood Cells 0 SEEN /hpf (0-5)
[2019-03-05] MEDS: 0.9% Normal Saline 1,000 ML 1000 ML IV (16:28)
[2019-03-05] MEDS: DiphenhydrAMINE 50 MG/ML Syringe 25 MG IV (16:28)
[2019-03-05] MEDS: Metoclopramide 10 MG/2 ML Vial IV (16:28)
[2019-03-05] MEDS: Acetaminophen 325 MG Tablet 650 MG PO (16:28)
[2019-03-05 17:05] LABS: Color, Urine Yellow (Yellow); Glucose, Dipstick Normal (Normal); Leukocyte Esterase-Dipstick 25 /ul (Negative); Nitrite-Dipstick Negative (Negative); Occult Blood-Urine Negative /ul (Negative); Protein-Dipstick 15 mg/dl (Negative); Urine Bilirubin Dipstick Negative (Negative); Urine Clarity Sl. Cloudy (Clear); Urine Urobilinogen 1 mg/dl (Normal); Urine pH 6.5 (5.0 - 8.0)
[2019-03-05 17:17] LABS: Ketone-Dipstick 150 mg/dl (Negative)
[2019-03-05 17:18] LABS: Bacteria RARE /hpf (None Seen); Mucous, Urine RARE /hpf (<or=2+); Squamous Epithelial Cells - UA 0-5 SEEN /hpf (5-10)
--- NOTE | 2019-03-05 17:52 | MRI_ITS ---
STUDY: EXAMINATION - MRV BRAIN WITHOUT CONTRAST REASON FOR EXAM: Female, 28 years old. H/A x 2 days, thrombus, 37 weeks TECHNIQUE: 3D hmop-za-rntdxp (TOF) imaging was performed in a akil MRI scanner. COMPARISON: None. FINDINGS: Normal flow within the superior sagittal sinus. Normal flow within the superficial cortical veins. Normal flow within the paired internal cerebral veins, vein of Manjinder and straight sinus. Normal flow within the bilateral transverse and sigmoid sinuses. Normal flow within the bilateral jugular bulbs. MRI/MRV Head Without Contrast IMPRESSION: Normal unenhanced MRV of the brain. Electronically Signed: Rafi Olson MD at 20:41 EST , Service support ,
[2019-03-05 20:00] VITALS: BP 115/80; PULSE 77; RESP 16; O2SAT 97
--- NOTE | 2019-03-05 20:55 | ED.DEP ---
ED Disposition - Plan for ED Patient: Instructions: ED, Migraine (Classical) Referrals: Ben Holt DO [Primary Care Provider] - 3-5 Days Keyla Soto MD [STAFF PHYSICIAN] - 3-5 Days
== END 2019-03-05 21:03 | disposition home or self-care (01) ==
LOC: ED 16:25
PROVIDERS: Emergency Provider Emergency Medicine; Family Provider Student in an Organized Health Care Education/Training Program; PCP Student in an Organized Health Care Education/Training Program
DX: O99.353 Diseases of the nervous system complicating pregnancy, third trimester (principal); G43.909 Migraine, unspecified, not intractable, without status migrainosus; R11.2 Nausea with vomiting, unspecified; H53.8 Other visual disturbances; K21.9 Gastro-esophageal reflux disease without esophagitis; O99.213 Obesity complicating pregnancy, third trimester; E66.9 Obesity, unspecified; Z90.49 Acquired absence of other specified parts of digestive tract; Z3A.37 37 weeks gestation of pregnancy; Z79.899 Other long term (current) drug therapy
CPT/HCPCS: 59025; 59050; 70544; 81001; 84112; 96361; 96374; 96375; 99218; 99283; J7030; A4216; G0378

== ENCOUNTER 2019-03-16 05:00 | Inpatient (IN) | payer MEDICAID, SELFPAY ==
--- NOTE | 2019-03-12 14:01 | PCM.HP.BLA ---
History and Physical Date of Admission: 03/16/19 HPI: The patient is a 28 year old female presenting for pre-operative visit. She is scheduled for?, for?history of previous , desires repeat on?03/16/2019. ??Procedure discussed along with risks, benefits and complications. ?Other alternatives discussed for management. Consent form signed??Yes.? PAST MEDICAL HISTORY PAST MEDICAL HISTORY Diagnosis Date ? Abnormal Pap smear of cervix 2012 ? +HPV ? 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 Added automatically from request for surgery [id number] ? Anxiety ? ? [facility] ? Attention deficit disorder without mention of hyperactivity ? ? Bilateral knee pain ? ? Bipolar disorder (HCC) ? ? Constipation ? ? Depression ? ? Genital herpes ? ? GERD (gastroesophageal reflux disease) ? ? Migraines ? ? Obesity ? ? depression ? ? Raynauds disease ? ? Seasonal allergic rhinitis ? ? Vitamin D deficiency 03/2013 ? ? PAST SURGICAL HISTORY PAST SURGICAL HISTORY Procedure Laterality Date ? Birthmark Removed ? ? ? Birthmark removed from left side of head ? DELIVERY ONLY ? 2011 ? , low transverse ? COLONOSCOP W/ OR W/O BRSH SPEC ? 05/29/2016 ? Colonoscopy mac ? EGD W/O OR W/BRUSH/WASH ? 02/23/14 ? EGD ? LAP CHOLECYSTECT/CHOLANGIOGRAPHY ? 09/06/14 ? Normal IOC ? PAST SURGICAL HISTORY OF Left 12/08/2017 ? kidner - dos ? PILONIDAL CYST/SINUS EXCISION ? ? ? cyst removed off of eyebrow ? TONSILLECTOMY HX ? ? ? UNSPECIFIED ORAL SURGERY PROCEDURE, BY REPORT ? ? ? [place] [facility] ? ? CURRENT MEDICATIONS Current Outpatient Medications Medication Sig Dispense Refill ? acyclovir (ZOVIRAX) 400 mg tablet Take 1 tablet by mouth three times daily. 90 tablet 3 ? acetaminophen (TYLENOL) 325 mg tablet Take 650 mg by mouth every 6 hours as needed. ? ? ? acetaminophen 325 mg-caffeine 40 mg-butalbital 50 mg (FIORICET) per tablet Take 1 tablet by mouth every 4 hours as needed. 10 tablet 0 ? metoclopramide HCl (REGLAN) 10 mg tablet Take 1 tablet by mouth four times daily. 10 tablet 0 ? famotidine (PEPCID) 20 mg tablet Take 1 tablet by mouth twice daily as needed (heartburn). 60 tablet 1 ? nystatin-triamcinolone (MYCOLOG) ointment Apply 1 application to affected area twice daily. 1 Tube 0 ? [id number]-Wworuyr-qrkuo9-nnm ( PLUS DHA) 18 mg iron-800 mcg-290 mg cppt Take 1 tablet by mouth once daily. 30 Each 12 ? loratadine (CLARITIN) 10 mg tablet Take 1 tablet by mouth once daily. 30 tablet 11 ? Docosahexanoic Acid ( DHA) 200 mg cap Take 1 capsule by mouth once daily. 30 capsule 5 ? amLODIPine (NORVASC) 2.5 mg tablet Take 1 tablet by mouth once daily. As needed for hand, foot pain and color change (Patient taking differently: Take 2.5 mg by mouth as needed. As needed for hand, foot pain and color change ) 30 tablet 1 ? lidocaine (XYLOCAINE) 2 % jelly Apply ?to affected area as needed. On vulva 1 Tube 5 ? fluticasone (FLONASE) 50 mcg/actuation nasal spray Use 1 [place] in each nostril once daily. (Patient taking differently: Use 1 Purlear in each nostril as needed. ) 16 g 2 ? aspirin (ASPIRIN CHILDRENS) 81 mg chewable tablet Take 81 mg by mouth once daily. ? ? ? No current facility-administered medications for this visit.? ? ALLERGIES:?Seasonal Allergies; Septra [Sulfamethoxazole-Trimethoprim]; Tape [Adhesive Tape-Silicones] ? PERSONAL HISTORY:? SOCIAL HISTORY Social History ? Tobacco Use ? Smoking status: Never Smoker ? Smokeless tobacco: Never Used Substance Use Topics ? Alcohol use: Not Currently ? ? Comment: rare ? Drug use: Never ? FAMILY HISTORY:? FAMILY HISTORY FAMILY HISTORY Problem Relation Age of Onset ? Hypertension Mother ? ? Diabetes Maternal Grandmother ? ? Hypertension Maternal Grandmother ? ? COPD Maternal Grandmother ? ? Cancer Maternal Grandfather ?vocal cords ? Hypertension Maternal Grandfather ? ? Diabetes Paternal Grandfather ? ? other (bipolar) Brother ? ? other (migraines) Brother ? ? ADD/ADHD Son ? ? REVIEW OF SYMPTOMS: GENERAL: denies fevers or chills ENDOCRINOLOGY: has not been on steroids Cardiology : denies palpitations or chest pain Respiratory: denies SOB or cough Hematology: denies history of prolonged bleeding or easy bruising or VTE Allergy: Denies history of personal or family history of allergy to anesthesia ? PHYSICAL EXAMINATION: ? VITALS:?Last menstrual period 06/14/2018. ? GENERAL:??The patient is well nourished, well hydrated in no acute distress. ?, The patient is oriented to time, place, and person. NECK:?Supple. No lynphadenopathy, normal thyroid, no thyromegaly. LUNGS:?Clear to auscultation bilaterally. no wheezes, rhonchi or rales HEART:?Regular rate and rhythm, Normal heart sounds and No murmurs or gallops Abd- soft, nontender gravid ext- trace edema ? IMPRESSION:?previous c/s, 39 weeks , ? ? PLAN:???The risks/benefits/alternatives and personal involved for the planned?c-sectoin?were reviewed with the patient. Her questions were answered to her satisfaction and she desires to proceed. ?Consent was signed. ?I reviewed with her postop instructions and expectations. ? ? I have reviewed and updated past medical and surgical history, medications and allergies. this history and physical was completed in my office on 03/12/2019.
[2019-03-16] VITALS (21 sets, daily range): BP systolic 105–142; BP diastolic 52–87; PULSE 67–108; RESP 12–18; TEMP 36.3–36.9; O2SAT 97–100; BMI 38.9
[2019-03-16] MEDS: Lactated Ringers 1,000 ML 999 ML IV (05:30)
[2019-03-16 05:44] LABS: Absolute Neutrophil Count 6.8 X10^3/uL (2.0-7.7); Basophil# 0.02 X10^3/uL; Basophil% 0.2 % (0-1); Hematocrit 34.9 % (37-47); Hemoglobin 11.3 g/dL (12.0-15.0); Lymphocyte % 22.8 % (19-41); Mean Corp Hgb Conc 32.4 g/dL (32-36); Mean Corpuscular Hgb 27.8 pg (27.0-32.0); Mean Platelet Vol. 9.8 fl (6.2-12.0); Monocyte# 0.45 X10^3/uL; Monocyte% 4.7 % (0-10); NRBC Flagged by Analyzer 0 % (0-5); Neutrophil # 6.81 X10^3/uL (2.7-7.7); Neutrophil % 70.8 % (47-70); Platelet Count 263 K/mm3 (150-450); RBC Distribution Width CV 15.1 % (11.6-14.6); RBC Distribution Width SD 47.8 fl (35.1-43.9); Red Blood Count 4.06 M/mm3 (4.2-5.4); White Blood Count 9.6 K/mm3 (4.4-11.0)
[2019-03-16] MEDS: Sodium Citrate/Citric Acid 30 ML UDC PO (07:10)
[2019-03-16] MEDS: Cefazolin 2 GM in 0.9% Normal Saline 100 ML IV (07:17)
--- NOTE | 2019-03-16 08:16 | PCM.OPRPT ---
Report of Operation Date of Procedure: 03/16/19 Pre-Operative Diagnosis: 39 week , previous c/s Post-Operative Diagnosis: same Surgery/Procedure Performed:: repeat LTCS Description of Surgical Findings:: normal uterus, tubes and ovaries, normal placenta assistant therapy aide: Ana María Richard Type of Anesthesia:: Spinal Anesthesiologist: Freda Middleton Special Medications: none Delivery Classification: Scheduled Final SHANELLE: 03/21/19 Gestational age: 39 Weeks and 2 Days assistant therapy aide: Ana María Richard Type of Anesthesia:: Spinal Special Medications: none Implants Used: none Date of Procedure: 03/16/19 Pre-Operative Diagnosis: 39 week , previous c/s Post-Operative Diagnosis: Same Indications for : Repeat Elective Description of Procedure: The patient was taken to the operating room. She was prepped and draped in the dorsal supine position with a leftward tilt. A Pfannenstiel skin incision was made approximately 2 cm above the symphysis pubis and carried through to underlying layer fascia with the scalpel. The fascia was incised incised in the midline and extended laterally with the Marie scissors. The fascia was dissected off the rectus muscles with blunt and sharp dissection. The rectus muscles were in the midline and the peritoneum was entered bluntly. The peritoneal incision was stretched and the bladder blade was placed. The uterine incision was made in a low transverse fashion with the scalpel and extended superiorly and inferiorly with blunt dissection. The amniotic membranes were ruptured bluntly and clear amniotic fluid returned. The 's head was brought to the incision in the flexed position and delivered without difficulty. The remainder of the was delivered with gentle traction and fundal pressure in the standard fashion. The mouth and nares were bulb suctioned. The cord was clamped and cut as the was stimulated. Cord clamping was delayed. The infant was handed off to the waiting nursing staff. The placenta was delivered with fundal massage and gentle traction in the standard fashion. The uterus was exteriorized and cleared of all clots and debris. The cervix was dilated with a ring forcep. The uterine incision was closed with #1 Vicryl in a running locked fashion. A second layer of the same suture was used in an imbricating fashion. The incision was examined and was found to be hemostatic. The uterus was placed back into the peritoneal cavity and hemostasis was again confirmed. The rectus muscles were examined and any bleeding was Bovie cauterized. The parietal peritoneum and rectus muscles were closed en bloc with an 0 Vicryl running suture. The surgical teams outer gloves were then changed. The rectus fascia was examined and any bleeding was Bovie cauterized and the rectus fascia was closed with 0 PDS suture in a running standard fashion. The subcutaneous tissue was examining and any bleeding was Bovie cauterized. The subcutaneous tissue was reapproximated with 3-0 Vicryl suture. The skin was closed in a subcuticular fashion by the STAFF NURSE with me present in the labor and delivery suite. I performed the remainder of the procedure with assistance. All sponge, lap, and needle counts were correct. The patient was taken to her room for recovery in a stable condition. Amniotic Membrane Rupture Type: Artificial Amniotic Fluid Description: Clear Placenta Disposition: [facility] Specimen(s) sent to pathology: None Drain: [place] to straight drain Fluids Replaced: 1000 Cord Entanglement: None Nuchal Cord Compression: Without compression Cord Vessel Description: 3 Vessels Esitmated Blood Loss (ml): 800 Infant Gender: Male Delayed cord clamping: No Antibiotic Given: Ancef 2 grams IV x1 Complications: None - Admit VTE Documentation VTE Present on Admission: No VTE Mechan Device Prophylaxis: SCD's VTE Pharm Prophylaxis ordered?: No
[2019-03-16] MEDS: Oxytocin 30 units/NS 500 ml 30 UNITS/500 ML IV.SOLN 167 UNITS IV (08:35)
[2019-03-16] MEDS: Ondansetron ODT 4 MG Tablet PO (10:24)
[2019-03-16] MEDS: proCHLORPERazine 10 MG/2 ML Vial IV (11:22)
[2019-03-16] MEDS: Lactated Ringers 1,000 ML 100 ML IV (11:35)
[2019-03-16] MEDS: Ketorolac 30 MG/ML Syringe IV ×2 (15:07→20:42)
[2019-03-16] MEDS: Enoxaparin 40 MG/0.4 ML Syringe SC (20:42)
[2019-03-16] MEDS: Docusate Sodium 100 MG Capsule PO (21:47)
[2019-03-16] MEDS: Senna/Docusate Sodium 1 Tablet PO (21:47)
[2019-03-17 01:50] VITALS: PULSE 95; RESP 18; O2SAT 97
[2019-03-17] MEDS: Ketorolac 30 MG/ML Syringe IV ×4 (03:00→20:48)
[2019-03-17] MEDS: 0.9% Saline Lock 10 ML Syringe IV ×4 (03:00→20:48)
[2019-03-17 03:50] VITALS: BP 114/62; PULSE 94; RESP 16; TEMP 36.9; O2SAT 97
[2019-03-17 05:50] VITALS: PULSE 96; RESP 18; O2SAT 97
[2019-03-17 06:38] LABS: Hematocrit 29.5 % (37-47); Hemoglobin 9.6 g/dL (12.0-15.0); Mean Corp Hgb Conc 32.5 g/dL (32-36); Mean Corpuscular Hgb 28.5 pg (27.0-32.0); Mean Corpuscular Volume 87.5 fL (81-99); Mean Platelet Vol. 9.7 fl (6.2-12.0); Platelet Count 223 K/mm3 (150-450); RBC Distribution Width CV 15.1 % (11.6-14.6); RBC Distribution Width SD 48.7 fl (35.1-43.9); Red Blood Count 3.37 M/mm3 (4.2-5.4); White Blood Count 8.9 K/mm3 (4.4-11.0)
[2019-03-17 07:50] VITALS: BP 118/71; PULSE 80; RESP 16; TEMP 37; O2SAT 97
--- NOTE | 2019-03-17 08:41 | PCM.PN.OB ---
Subjective: Pain well controlled. Average lochia. No nausea or vomiting. Has been up to ambulate. - Physical Exam Vitals/I&O's: Vital Signs Temp Pulse Resp BP Pulse Ox 98.6 F 80 16 118/71 97 03/17/19 07:50 03/17/19 07:50 03/17/19 07:50 03/17/19 07:50 03/17/19 07:50 Oxygen Delivery Method Room Air Weight: 90.356 kg Body Mass Index (BMI) 38.9 Intake and Output for Last 24 Hours 03/15/19 03/16/19 03/17/19 23:59 23:59 23:59 Intake Total 2950.67 / 2950.67 Output Total 510 / 510 800 / 800 Balance 2440.67 / 2440.67 -800 / -800 General: Alert, Cooperative, No apparent distress Abdomen: Soft, Tender - Appropriately Extremities: Edema - 2+ Skin: Incision - The bandage is clean dry and intact. Laboratory Results 03/17/19 06:05: WBC 8.9, RBC 3.37 L, Hgb 9.6 L, Hct 29.5 L, MCV 87.5, MCH 28.5, MCHC 32.5, RDW Std Deviation 48.7 H, RDW Coeff of Lissette 15.1 H, Plt Count 223, MPV 9.7 Current Medications Acetaminophen (Tylenol) 1,000 mg PO Q8H PRN PRN Reason: Pain Score 1-3/10 Bisacodyl (Dulcolax) 10 mg RECTAL UD PRN PRN Reason: If no BM Docusate Sodium (Colace) 100 mg PO BID [facility] Last Admin: 03/16/19 21:47 Dose: 100 mg Documented by: Enoxaparin Sodium (Lovenox) 40 mg SC DAILY [facility] Last Admin: 03/16/19 20:42 Dose: 40 mg Documented by: Hydrocortisone (Hytone) 1 applic TOPICAL TID PRN PRN; Protocol PRN Reason: Discomfort Naloxone HCl 4 mg/ Dextrose 504 mls @ 0 mls/hr IV .Q0M PRN; Protocol PRN Reason: Respiratory depression Ketorolac Tromethamine (Toradol) 30 mg IV Q6H [facility] Stop: 03/18/19 09:01 Last Admin: 03/17/19 03:00 Dose: 30 mg Documented by: Methylergonovine Maleate (Methergine) 0.2 mg IM X1 PRN PRN Reason: Uterine Atony Naloxone HCl (Narcan) 0.02 mg IV Q1M PRN PRN Reason: RR <10 and pt unresponsive Naproxen (Naprosyn) 250 - 500 mg PO Q8H PRN PRN PRN Reason: Pain Score 1-3/10 Ondansetron HCl (Zofran Odt) 4 mg PO Q4H PRN PRN PRN Reason: ITCHING Stop: 03/17/19 08:47 Last Admin: 03/16/19 10:24 Dose: 4 mg Documented by: Ondansetron HCl (Zofran) 4 mg IV Q4H PRN PRN PRN Reason: Nausea Oxycodone HCl (Oxyir) 5 - 10 mg PO Q4H PRN PRN PRN Reason: Pain Score 4-10/10 Prochlorperazine Edisylate (Compazine Iv) 10 mg IV Q6H PRN PRN PRN Reason: NAUSEA Last Admin: 03/16/19 11:22 Dose: 10 mg Documented by: Senna/Docusate Sodium (Senokot-S, Zoila-Colace) 1 tablet PO BID [facility] Last Admin: 03/16/19 21:47 Dose: 1 tablet Documented by: Simethicone (Mylicon) 80 mg PO [facility] PRN PRN Reason: Indigestion/stomach pain Sodium Chloride () 5 - 15 ml IV UD PRN PRN Reason: SALINE FLUSH Last Admin: 03/17/19 03:00 Dose: 10 ml Documented by: Medical Necessity - Tobacco Use Smoking Status: Former smoker Assessment/Plan All Active Problems History of delivery affecting (Acute) Morbid obesity (Acute) Raynaud disease (Acute) HPV (human papilloma virus) infection (Acute) Headache (Acute) Proteinuria affecting (Acute) Postoperative day 1 status post repeat . Patient is doing well. Infant is breast-feeding and doing well. Routine care and instructions today. Mild acute blood loss anemia superimposed on chronic antepartum anemia. Hemoglobin is appropriate for blood loss during surgery.
[2019-03-17] MEDS: Enoxaparin 40 MG/0.4 ML Syringe SC (10:25)
[2019-03-17] MEDS: Senna/Docusate Sodium 1 Tablet PO (10:25)
[2019-03-17 14:50] VITALS: BP 122/80; PULSE 80; RESP 16; TEMP 36.9
[2019-03-17 20:54] VITALS: BP 129/73; PULSE 100; RESP 16; TEMP 36.4; O2SAT 98
[2019-03-18 02:21] VITALS: BP 126/78; PULSE 86; RESP 16; TEMP 36.7; O2SAT 100
[2019-03-18] MEDS: 0.9% Saline Lock 10 ML Syringe IV ×2 (02:22→08:34)
[2019-03-18] MEDS: Ketorolac 30 MG/ML Syringe IV ×2 (02:22→08:34)
[2019-03-18 08:00] VITALS: BP 125/77; PULSE 89; RESP 16; TEMP 36.9
--- NOTE | 2019-03-18 09:02 | PN.OBGYN_ITS ---
Subjective: Pain well controlled. Average lochia. Patient has had a bowel movement. Tolerating regular diet. - Physical Exam Vitals/I&O's: Vital Signs Temp Pulse Resp BP Pulse Ox 98.1 F 86 16 126/78 H 100 03/18/19 02:21 03/18/19 02:21 03/18/19 02:21 03/18/19 02:21 03/18/19 02:21 Oxygen Delivery Method Room Air Weight: 90.356 kg Body Mass Index (BMI) 38.9 Intake and Output for Last 24 Hours 03/16/19 03/17/19 03/18/19 23:59 23:59 23:59 Intake Total 2950.67 / 2950.67 Output Total 510 / 510 800 / 800 Balance 2440.67 / 2440.67 -800 / -800 General: Alert, Cooperative, No apparent distress Abdomen: Soft, Non-Distended, Tender - Appropriately Extremities: Edema - 1+ Skin: Incision - The bandage is clean dry and intact Current Medications Acetaminophen (Tylenol) 1,000 mg PO Q8H PRN PRN Reason: Pain Score 1-3/10 Bisacodyl (Dulcolax) 10 mg RECTAL UD PRN PRN Reason: If no BM Docusate Sodium (Colace) 100 mg PO BID [facility] Last Admin: 03/17/19 20:59 Dose: Not Given Documented by: Enoxaparin Sodium (Lovenox) 40 mg SC DAILY [facility] Last Admin: 03/17/19 10:25 Dose: 40 mg Documented by: Hydrocortisone (Hytone) 1 applic TOPICAL TID PRN PRN; Protocol PRN Reason: Discomfort Naloxone HCl 4 mg/ Dextrose 504 mls @ 0 mls/hr IV .Q0M PRN; Protocol PRN Reason: Respiratory depression Methylergonovine Maleate (Methergine) 0.2 mg IM X1 PRN PRN Reason: Uterine Atony Naloxone HCl (Narcan) 0.02 mg IV Q1M PRN PRN Reason: RR <10 and pt unresponsive Naproxen (Naprosyn) 250 - 500 mg PO Q8H PRN PRN PRN Reason: Pain Score 1-3/10 Ondansetron HCl (Zofran) 4 mg IV Q4H PRN PRN PRN Reason: Nausea Oxycodone HCl (Oxyir) 5 - 10 mg PO Q4H PRN PRN PRN Reason: Pain Score 4-10/10 Prochlorperazine Edisylate (Compazine Iv) 10 mg IV Q6H PRN PRN PRN Reason: NAUSEA Last Admin: 03/16/19 11:22 Dose: 10 mg Documented by: Simethicone (Mylicon) 80 mg PO [facility] PRN PRN Reason: Indigestion/stomach pain Sodium Chloride () 5 - 15 ml IV UD PRN PRN Reason: SALINE FLUSH Last Admin: 03/18/19 08:34 Dose: 10 ml Documented by: Medical Necessity - Tobacco Use Smoking Status: Former smoker Assessment/Plan All Active Problems History of delivery affecting (Acute) Morbid obesity (Acute) Raynaud disease (Acute) HPV (human papilloma virus) infection (Acute) Headache (Acute) Proteinuria affecting (Acute) Postoperative day #2 status post repeat section Patient is doing well. Desires discharge home today. Routine instructions and prescriptions. He is breast-feeding and doing well.
--- NOTE | 2019-03-18 09:09 | DCINST_ITS ---
Discharge Diet: No Restrictions Discharge Activity: Return to Normal Activity, May Not Drive - for 2 weeks, May not drive while taking narcotic pain medications., May Shower, May Take a Tub Bath - in 7 days. May resume sexual activity in: 4-6 weeks Lifting Restrictions: 20 pounds Additional Activity Instructions:: Nothing in the vagina for 4-6 weeks. You may return to work/school in 6 weeks. Call your doctor if your incision/area has: Continuous Slow Oozing, Sudden Increased Bleeding, Increased Pain/ Swelling, Increased Redness, Foul Smelling Discharge Call your doctor if you observe: Fever of 101 or Higher, Using more than one pad per hour - for 2 hours Suture Line Care: Avoid Pulling/Pushing, Avoid Pinching/Bending Cleanse incision/area with: Keep Dressing Clean & Dry Additional Instructions: If you experience any of the following, contact your healthcare provider. * Bleeding that soaks a pad every hour for 2 hours * Fever 100.4 or higher * Unrelieved incision or abdominal pain * Swelling, redness, discharge or bleeding from your incision or episiotomy site * Your incision begins to separate * Problems urinating (including inability to urinate or burning while urinating). * Visual changes * Severe headache * Flu-like symptoms * Pain or redness in one of both of your breasts * Pain, warmth, tenderness or swelling in your legs, especially the calf area * Frequent nausea and vomiting * Symptoms of depression or anxiety If you experience any of the following, call 911 or go to the nearest Emergency Room. * Chest pain * Problems breathing * Seizure activity * Partial or complete paralysis of a body part, slurred speech, weakness or drooping of the face, or a sudden inability to walk or hold your balance Allergies/Adverse Reactions: Allergies adhesive tape Allergy (Verified 03/16/19 05:25) Rash sulfamethoxazole [From Novra] Allergy (Verified 03/16/19 05:25) Unknown trimethoprim [From Novra] Allergy (Verified 03/16/19 05:25) Unknown Medications to take at Discharge Vits [Prenatabs FA ] 1 tablet PO DAILY 07/24/18 Acetaminophen [Tylenol] 650 mg PO PRN PRN 02/06/19 Famotidine [Pepcid] 20 mg PO BID PRN 02/06/19 Hydrocodone Bitart/Apap 5-325 [Ericson 5MG-325MG] 1 tablet PO Q6H PRN PRN 5 Days #10 tablet 03/18/19 Ibuprofen [Motrin] 600 mg PO Q6H PRN #60 tab 03/18/19 The following prescriptions were given: Ibuprofen [Motrin] 600 mg PO Q6H PRN #60 tab PRN Reason: Pain Transmission Status: Pending to [facility] Hydrocodone Bitart/Apap 5-325 [Ericson 5MG-325MG] 1 tablet PO Q6H PRN PRN 5 Days #10 tablet PRN Reason: Pain Transmission Status: Sent to [facility] Follow-Up: Call to make an appointment with your doctor for an incision check in 1-2 weeks. You will also need a 6 week post- follow up appointment. Test results from this visit will be discussed in further detail at your follow- up appointment, if applicable. Please Follow Up With: Keyla Soto MD - Call to make an appointment for an incision check in 1-2 [phone] When: You will need a post check in 6 weeks. Primary Care Physician: Ben Holt DO [Primary Care Provider] -
--- NOTE | 2019-03-18 09:10 | PCM.DC.SUM ---
Discharge Date and Diagnosis Date of Admission: 03/16/19 Date of Discharge: 03/18/19 - Secondary Discharge Diagnosis Chronic Problems History of gastroesophageal reflux (GERD) (Chronic) History of depression (Chronic) History of PCR DNA positive for HSV1 (Chronic) Hospital Course and Treatment Consultations 03/16/19 19:19 Consult: Mental Health/Crisis Routine Reason for consult?: bipolar Date Notified:: 03/16/19 Time notified:: 19:20 Operations: - - Repeat low transverse section via Pfannenstiel skin incision Procedures: None Summary of Care Provided: The patient is a 48-year-old multigravida with history of previous section presented at 39-2/7 weeks for repeat section. It was performed without difficulty. Her postoperative course was unremarkable and by postoperative day #2 she was ambulating, urinating, tolerating regular diet without difficulty and oral pain medication. She was discharged home with routine instructions and prescriptions. [] - Physical Exam Vitals/I&O's: Vital Signs Temp Pulse Resp BP Pulse Ox 98.1 F 86 16 126/78 H 100 03/18/19 02:21 03/18/19 02:21 03/18/19 02:21 03/18/19 02:21 03/18/19 02:21 Oxygen Delivery Method Room Air Weight: 90.356 kg Body Mass Index (BMI) 38.9 Intake and Output for Last 24 Hours 03/16/19 03/17/19 03/18/19 23:59 23:59 23:59 Intake Total 2950.67 / 2950.67 Output Total 510 / 510 800 / 800 Balance 2440.67 / 2440.67 -800 / -800 Current Medications Acetaminophen (Tylenol) 1,000 mg PO Q8H PRN PRN Reason: Pain Score 1-3/10 Bisacodyl (Dulcolax) 10 mg RECTAL UD PRN PRN Reason: If no BM Docusate Sodium (Colace) 100 mg PO BID [facility] Last Admin: 03/17/19 20:59 Dose: Not Given Documented by: Enoxaparin Sodium (Lovenox) 40 mg SC DAILY [facility] Last Admin: 03/17/19 10:25 Dose: 40 mg Documented by: Hydrocortisone (Hytone) 1 applic TOPICAL TID PRN PRN; Protocol PRN Reason: Discomfort Naloxone HCl 4 mg/ Dextrose 504 mls @ 0 mls/hr IV .Q0M PRN; Protocol PRN Reason: Respiratory depression Methylergonovine Maleate (Methergine) 0.2 mg IM X1 PRN PRN Reason: Uterine Atony Naloxone HCl (Narcan) 0.02 mg IV Q1M PRN PRN Reason: RR <10 and pt unresponsive Naproxen (Naprosyn) 250 - 500 mg PO Q8H PRN PRN PRN Reason: Pain Score 1-3/10 Ondansetron HCl (Zofran) 4 mg IV Q4H PRN PRN PRN Reason: Nausea Oxycodone HCl (Oxyir) 5 - 10 mg PO Q4H PRN PRN PRN Reason: Pain Score 4-10/10 Prochlorperazine Edisylate (Compazine Iv) 10 mg IV Q6H PRN PRN PRN Reason: NAUSEA Last Admin: 03/16/19 11:22 Dose: 10 mg Documented by: Simethicone (Mylicon) 80 mg PO PCHS PRN PRN Reason: Indigestion/stomach pain Sodium Chloride () 5 - 15 ml IV UD PRN PRN Reason: SALINE FLUSH Last Admin: 03/18/19 08:34 Dose: 10 ml Documented by: Discharge Diet: No Restrictions Discharge Activity: Return to Normal Activity, May Not Drive - for 2 weeks, May not drive while taking narcotic pain medications., May Shower, May Take a Tub Bath - in 7 days. May resume sexual activity in: 4-6 weeks Additional Activity Instructions:: Nothing in the vagina for 4-6 weeks. You may return to work/school in 6 weeks. Call your doctor if your incision/area has: Continuous Slow Oozing, Sudden Increased Bleeding, Increased Pain/ Swelling, Increased Redness, Foul Smelling Discharge Call your doctor if you observe: Fever of 101 or Higher, Using more than one pad per hour - for 2 hours Suture Line Care: Avoid Pulling/Pushing, Avoid Pinching/Bending Cleanse incision/area with: Keep Dressing Clean & Dry Home Medications: Medications to take at Discharge Vits [Prenatabs FA ] 1 tablet PO DAILY 07/24/18 Acetaminophen [Tylenol] 650 mg PO PRN PRN 02/06/19 Famotidine [Pepcid] 20 mg PO BID PRN 02/06/19 Hydrocodone Bitart/Apap 5-325 [Marana 5MG-325MG] 1 tab PO Q6H PRN PRN 5 Days #10 tab 03/18/19 Ibuprofen [Motrin] 600 mg PO Q6H PRN #60 tab 03/18/19 Following Prescrptions Were Given to Patient: Ibuprofen [Motrin] 600 mg PO Q6H PRN #60 tab PRN Reason: Pain Transmission Status: Received by [facility] Hydrocodone Bitart/Apap 5-325 [Marana 5MG-325MG] 1 tab PO Q6H PRN PRN 5 Days #10 tab PRN Reason: Pain Transmission Status: Received by [id number] Primary Care Physician: Ben Holt DO [Primary Care Provider] - Please Follow Up With: Keyla Soto MD - Call to make an appointment for an incision check in 1-2 [phone] When: You will need a post check in 6 weeks. Medical Necessity - Tobacco Use Smoking Status: Former smoker Meaningful Use Info Meaningful Use Diagnoses (Choose all that apply): None applicable
== END 2019-03-18 11:10 | disposition home or self-care (01) | DRG 540 ==
PROVIDERS: Admitting Provider Obstetrics & Gynecology; Family Provider Student in an Organized Health Care Education/Training Program; PCP Student in an Organized Health Care Education/Training Program; Referring Provider Obstetrics & Gynecology; Visit Provider Obstetrics & Gynecology
PROC: 10D00Z1 Extraction of Products of Conception, Low, Open Approach (ICD-10-PCS; CPT 59514; principal; 2019-03-16 07:15)
DX: O34.211 Maternal care for low transverse scar from previous cesarean delivery (principal); O90.81 Anemia of the puerperium; D62 Acute posthemorrhagic anemia; I73.00 Raynaud's syndrome without gangrene; O99.214 Obesity complicating childbirth; E66.01 Morbid (severe) obesity due to excess calories; K21.9 Gastro-esophageal reflux disease without esophagitis; Z87.891 Personal history of nicotine dependence; Z3A.39 39 weeks gestation of pregnancy; Z37.0 Single live birth
CPT/HCPCS: 85025; 85027; 86850; 86900; 86901; 99218; J7120; A4216; G0378; J2405

== ENCOUNTER 2019-08-30 19:23 | Emergency (ER) | payer MEDICAID, SELFPAY ==
[2019-03-16 05:24] VITALS: BMI 38.9
[2019-08-30 19:24] VITALS: BP 131/73; PULSE 79; RESP 18; TEMP 36.6; O2SAT 100; BMI 36.6
[2019-08-30 19:49] VITALS: RESP 16
--- NOTE | 2019-08-30 19:52 | US_ITS ---
STUDY: FIRST TRIMESTER OBSTETRICAL ULTRASOUND REASON FOR EXAM: Female, 28 years old BLEEDING WITH LMP: June 15, 2019 TECHNIQUE: Transvaginal TECHNICAL QUALITY: Adequate. PRIOR ULTRASOUND: None. FINDINGS: There is visualization of a single gestational sac in a normal intrauterine position. The mean sac diameter (MSD) measures 5.06 cm, indicating an estimated gestational age (EGA) of 11 weeks, 0 days. The gestational sac shape is within normal limits. There is no demonstrated yolk sac. The placenta is non-visualized. There is visualization of a live embryo. The crown-rump length (CRL) measures 4.95 cm, indicating an estimated gestational age (EGA) of 11 weeks, 5 days. There is demonstrated cardiac activity with a heart rate of 164 bpm. The estimated gestation age (EGA) by LMP is 10 weeks, 6 days. The estimated date of delivery (SHANELLE) by LMP is March 21, 2020. The estimated gestation age (EGA) by US is 11 weeks, 3 days. The estimated date of delivery (SHANELLE) by US is March 17, 2020. The uterus measures 9.3 x 6.8 x 8.1 cm. There is no demonstrated uterine fibroid. The cervix is closed. There is nonvisualization of the ovaries. There is no fluid in the cul de sac. US/Transvaginal w/Preg US IMPRESSION: Single intrauterine with estimated gestational age by ultrasound of 11 weeks and 3 days. Nonvisualization of the ovaries. Electronically Signed: Jazzmine Coppola MD at 23:11 EDT Tel , Service support ,
--- NOTE | 2019-08-30 19:53 | ED.DCSUM_ITS ---
History of Present Illness Chief Complaint: Vag Bld, Preg Narrative: This patient is a 28-year-old female who presents with vaginal bleeding. She is 11 weeks . She is G3, P2. She denies any pelvic pain or cramping. She has had no clots or tissue. She describes her bleeding is heavy. It began acutely 1 hour ago. She has no associated symptoms or recent illness and review of systems is otherwise negative. She has had a previous ultrasound confirming IUP. Past Medical History - Allergies and Home Meds Allergies/Adverse Reactions: Allergies adhesive tape Allergy (Verified 03/16/19 05:25) Rash sulfamethoxazole [From Novra] Allergy (Verified 03/16/19 05:25) Unknown trimethoprim [From Novra] Allergy (Verified 03/16/19 05:25) Unknown Primary Care Physician: Ben Holt DO [Primary Care Provider] - Past Medical History: None Surgical History: noncontributory Smoking Status: Former smoker Review of Systems All systems negative except as indicated General: Denies: Fever Eyes: Denies: Visual changes - bilaterally ENT: Denies: Bilateral ear pain Cardiovascular: Denies: Chest pain Respiratory: Denies: Dyspnea Gastrointestinal: Denies: Abdominal pain, Nausea, Vomiting Genitourinary: Reports: - - Vaginal bleeding. Denies: Dysuria, Frequency Musculoskeletal: Denies: Myalgias, Arthralgias Skin: Denies: Rash Neurological: Denies: Headache Hematologic: Denies: Easy bruising Allergy: Denies: Uticaria Physical Exam Vital Signs/Narrative: Vital Signs Temp Pulse Resp BP Pulse Ox 08/30/19 19:24 97.8 F 79 18 131/73 H 100 Inital Vital Signs reviewed: Yes General: Well nourished, Well developed Head: Normocephalic Eyes: EOMI ENT: Moist mucous membranes Neck: Supple Cardiovascular: Regular rate, Regular rhythm Respiratory: No distress, CTA bilaterally Abdomen: Soft, Nontender, Nondistended : - - Pelvic exam shows mild of vaginal bleeding no clots, no tissue visualize d Extremities: Nontender Skin: Normal color Neurological: Alert Psychological: - - Anxious and tearful Diagnostic/Tx/Re-eval Impressions Obstetrics Ultrasound 08/30/19 19:52 IMPRESSION: Single intrauterine with estimated gestational age by ultrasound of 11 weeks and 3 days. Nonvisualization of the ovaries. Electronically Signed: Jazzmine Coppola MD at 23:11 EDT Tel , Service support , 08/30/19 19:52 Transvaginal w/Preg US [US] Stat Laboratory Results 08/30/19 20:00 HCG, Quant [id number] H - Medical Decision Making Previous ultrasound had not demonstrated cardiac activity so I did obtain a quantitative hCG results as above. Pelvic ultrasound does show a single live intrauterine . Patient was advised to follow-up with her commissioning editor. She was advised to contact them tomorrow. Her bleeding is only minimal per patient report on reevaluation. She is resting comfortably. She does understand return for new or worsening symptoms. She is agreeable to this plan was discharged home. ED Disposition - Plan for ED Patient: Disposition: Home or Assisted Living Diagnosis: Vaginal bleeding during Instructions: ED Possible Miscarriage Threatened Referrals: Ben Holt DO [Primary Care Provider] - Keyla Soto MD [STAFF PHYSICIAN] -
[2019-08-30 22:57] VITALS: BP 123/50; PULSE 77; RESP 16; O2SAT 100
== END 2019-08-30 23:32 | disposition home or self-care (01) ==
PROVIDERS: Emergency Provider Emergency Medicine; PCP Student in an Organized Health Care Education/Training Program
DX: O20.9 Hemorrhage in early pregnancy, unspecified (principal); Z3A.11 11 weeks gestation of pregnancy; Z87.891 Personal history of nicotine dependence
CPT/HCPCS: 36415; 76817; 84702; 99282

== ENCOUNTER 2020-01-02 16:50 | Outpatient (CLI) | payer MEDICAID, SELFPAY ==
[2020-01-02 17:24] VITALS: BMI 36.9
--- NOTE | 2020-01-02 17:44 | OB.TRI.NOTE ---
History of Present Illness Was patient seen by the physician?: Yes Reason For Visit: DECREASED MOVEMENT Date of Service: 01/02/20 Final SHANELLE: 03/21/20 Final SHANELLE Source: LMP Gestational age: 28 Weeks and 5 Days Allergies adhesive tape Allergy (Verified 01/02/20 17:26) Rash sulfamethoxazole [From Novra] Allergy (Verified 01/02/20 17:26) Unknown trimethoprim [From Novra] Allergy (Verified 01/02/20 17:26) Unknown NST - FHR Rate Baby A Baseline: 140 Variability:: Moderate Accelerations:: 15 x 15 Decelerations:: Variable NST Reactive:: Yes Uterine Activity:: quiet Impression/Plan NST for decreased FM
== END 2020-01-02 17:50 | disposition home or self-care (01) ==
LOC: WPOUT 17:01 → OBT 17:01
PROVIDERS: PCP Student in an Organized Health Care Education/Training Program; Visit Provider Obstetrics & Gynecology
DX: O36.8130 Decreased fetal movements, third trimester, not applicable or unspecified (principal); Z3A.28 28 weeks gestation of pregnancy
CPT/HCPCS: 59025; 59050; 99218; G0378

== ENCOUNTER 2020-01-30 16:35 | Outpatient (CLI) | payer MEDICAID, SELFPAY ==
[2020-01-30 16:46] VITALS: BMI 37.1
--- NOTE | 2020-01-30 17:09 | OB.TRI.NOTE ---
- Problem List (1) 33 weeks gestation of Status: Acute (2) History of delivery affecting Status: Acute History of Present Illness Date of Service: 01/30/20 Was patient seen by the physician?: No Reason For Visit: RULE OUT LABOR Final SHANELLE: 03/13/20 Final SHANELLE Source: LMP Gestational age: 34 Weeks and 2 Days History of Present Illness: Patient is G P at 33.6 weeks gestation that presents to triage with lower pelvic pressure and possible leaking of fluid. Patient stated she was seen in the office last week and had similar issues. She was checked and not dilated. Patient is a repeat section. Allergies sulfamethoxazole [From Septra] Allergy (Mild, Verified 01/30/20 16:49) Unknown rash adhesive tape Allergy (Verified 01/02/20 17:26) Rash trimethoprim [From Septra] Allergy (Verified 01/30/20 16:49) Unknown Review of Systems Constitutional: Denies: Chills, Fever Eyes: Denies: Blurred vision HEENT: Denies: Head Aches Cardiovascular: Denies: Chest Pain Respiratory: Denies: Cough, Shortness of Breath Gastrointestinal: Denies: Abdominal Pain Genitourinary: Denies: Dysuria Gynecological: Reports: - - Pelvic pressure Neurological: Denies: Headaches Physical Exam General: Alert, Oriented x3, Cooperative Cardiovascular: Regular rate Lungs: Normal air movement Abdomen: Soft, Non Tender, Gravid Neurological: Cranial nerves II-XII grossly intact Cervix Dilation (cm): 0 Station: -2 NST - FHR Rate Baby A Baseline: 130 Variability:: Moderate Accelerations:: 15 x 15 Decelerations:: None NST Reactive:: Yes FHR Category:: Category I Uterine Activity:: None noted Impression/Plan at 33.6 weeks with lower pelvic pressure and possible leaking of fluid Continuous EFM ROM plus - negative FFN- negative CE- Closed/thick/-2 UA collected and sent Discharge home with follow up in office Dr. Davis present and aware of plan of care
[2020-01-30 17:25] LABS: Mucous, Urine 0 SEEN /hpf (<or=2+); Red Blood Cells-Urine 0 SEEN /hpf (0-5)
[2020-01-30 17:28] LABS: Color, Urine Yellow (Yellow); Glucose, Dipstick Normal (Normal); Ketone-Dipstick Negative (Negative); Leukocyte Esterase-Dipstick 100 /ul (Negative); Nitrite-Dipstick Negative (Negative); Occult Blood-Urine Negative /ul (Negative); Protein-Dipstick Negative (Negative); Urine Bilirubin Dipstick Negative (Negative); Urine Clarity Clear (Clear); Urine Urobilinogen Normal (Normal); Urine pH 6.5 (5.0 - 8.0)
[2020-01-30 17:36] LABS: Bacteria 1+ /hpf (None Seen); Squamous Epithelial Cells - UA 0-5 SEEN /hpf (5-10); White Blood Cells 0-5 SEEN /hpf (0-5)
[2020-01-30 17:52] LABS: ROM Internal Control Test YES-OK TO RESULT pt. (Internal QC); ROM Patient Test Negative (Negative)
[2020-01-30 18:12] LABS: Fetal Fibronectin Negative
== END 2020-01-30 18:15 | disposition home or self-care (01) ==
LOC: WPOUT 16:39 → OBT 16:40
PROVIDERS: PCP Student in an Organized Health Care Education/Training Program; Visit Provider Advanced Practice Midwife
DX: O26.893 Other specified pregnancy related conditions, third trimester (principal); O34.219 Maternal care for unspecified type scar from previous cesarean delivery; Z3A.33 33 weeks gestation of pregnancy
CPT/HCPCS: 59025; 59050; 81001; 82731; 84112; 99218; G0378

== ENCOUNTER 2020-03-04 11:33 | Outpatient (CLI) | payer MEDICAID, SELFPAY ==
[2020-03-04 11:45] VITALS: TEMP 37.1
[2020-03-04 11:47] VITALS: BP 123/76; PULSE 97
[2020-03-04 11:51] VITALS: BMI 38.2
--- NOTE | 2020-03-14 08:39 | PCM.HP.OB ---
History Date of Admission: 03/06/20 Final SHANELLE Source: US <20 weeks History of this : OB Triage Physician Note Patient Name: MYESHA BARRON Date of : 89 Patient Status: Inpatient Attending Provider: Keyla Soto Date: 03/05/20 11:32 Initialization Date: 03/05/20 11:32 History of Present Illness Date of Service: 03/04/20 Was patient seen by the physician?: No Reason For Visit: C SECTION Date of Service: 03/04/20 Final SHANELLE: 03/13/20 Final SHANELLE Source: LMP Gestational age: 38 Weeks and 5 Days Allergies sulfamethoxazole [From Septra] Allergy (Mild, Verified 03/04/20 11:52) Rash rash adhesive tape Allergy (Verified 01/02/20 17:26) Rash trimethoprim [From [facility]] Allergy (Verified 03/04/20 11:52) Rash NST - FHR Rate Baby A Baseline: 135 Variability:: Moderate Decelerations:: None NST Reactive:: Yes FHR Category:: Category I Uterine Activity:: irreg ctxs Impression/Plan 29 YOF 38 5/7 w/ decreased movement, irreg ctxs d/c home plan repeat c/s at 39+ weeks unless SROM or labor f/u as scheduled Allergies sulfamethoxazole [From Septra] Allergy (Mild, Verified 03/06/20 02:49) Rash rash adhesive tape Allergy (Verified 03/06/20 02:49) Rash trimethoprim [From Septra] Allergy (Verified 03/06/20 02:49) Rash Home Medications: Home Medications Vits [Prenatabs FA ] 1 tablet PO DAILY 07/24/18 Acetaminophen [Tylenol] 650 mg PO PRN PRN 02/06/19 Omeprazole [Prilosec] 20 mg PO DAILY PRN 01/02/20 Acetaminophen [Tylenol] 1,000 mg PO Q6H #60 tab 03/07/20 Docusate Sodium [Colace] 100 mg PO DAILY #20 cap 03/07/20 Naproxen [Naprosyn] 500 mg PO Q8H #60 tab 03/07/20 SimETHICONE [Mylicon] 80 mg PO 4X/DAY #30 tab 03/07/20 Smoking Status: Never smoker History Past Pregnancies: Past Pregnancies Delivery Date Name GA/ Weeks Outcome Route Wt Sex Labor Length Anesthesia Delivery Location Provider FOB Physical Exam Vitals: Vital Signs Temp Pulse BP 98.7 F 97 123/76 H 03/04/20 11:45 03/04/20 11:47 03/04/20 11:47 Assessment/Plan All Active Problems History of delivery affecting (Acute) Morbid obesity (Acute) Raynaud disease (Acute) HPV (human papilloma virus) infection (Acute) Headache (Acute) Proteinuria affecting (Acute) 33 weeks gestation of (Acute) This is a 29 year-old, G [], P [], at weeks gestational age.
== END 2020-03-04 12:50 | disposition home or self-care (01) ==
LOC: WPOUT 11:34 → WP 11:35
PROVIDERS: PCP Student in an Organized Health Care Education/Training Program; Visit Provider Obstetrics & Gynecology
DX: O36.8130 Decreased fetal movements, third trimester, not applicable or unspecified (principal); Z3A.38 38 weeks gestation of pregnancy
CPT/HCPCS: 59025; 59050; 99218; G0378

== ENCOUNTER 2020-03-06 02:55 | Inpatient (IN) | payer MEDICAID, SELFPAY ==
[2020-03-06] VITALS (20 sets, daily range): BP systolic 97–130; BP diastolic 38–76; PULSE 50–113; RESP 12–20; TEMP 36.2–37; O2SAT 96–100; BMI 38.2
[2020-03-06 02:54] LABS: ROM Internal Control Test YES-OK TO RESULT pt. (Internal QC); ROM Patient Test POSITIVE (Negative)
[2020-03-06 03:20] LABS: Absolute Lymphocyte Count 2.09 X10^3/uL (0.83-4.51); Absolute Neutrophil Count 6.7 X10^3/uL (2.0-7.7); Basophil# 0.02 X10^3/uL; Basophil% 0.2 % (0-1); Eosinophil# 0.12 X10^3/uL; Eosinophils% 1.3 % (0-5); Hematocrit 33.4 % (37-47); Hemoglobin 10.9 g/dL (12.0-15.0); Lymphocyte # 2.09 X10^3/ul (4.0); Lymphocyte % 22.2 % (19-41); Mean Corp Hgb Conc 32.6 g/dL (32-36); Mean Corpuscular Hgb 28.3 pg (27.0-32.0); Mean Corpuscular Volume 86.8 fL (81-99); Mean Platelet Vol. 9.6 fl (6.2-12.0); Monocyte# 0.47 X10^3/uL; NRBC Flagged by Analyzer 0 % (0-5); Neutrophil # 6.66 X10^3/uL (2.7-7.7); Neutrophil % 70.7 % (47-70); Platelet Count 250 K/mm3 (150-450); RBC Distribution Width CV 14.4 % (11.6-14.6); RBC Distribution Width SD 43.8 fl (35.1-43.9); Red Blood Count 3.85 M/mm3 (4.2-5.4); White Blood Count 9.4 K/mm3 (4.4-11.0)
[2020-03-06] MEDS: Lactated Ringers 1,000 ML 999 ML IV (04:08)
[2020-03-06] MEDS: Acetaminophen 500 MG Tablet 1000 MG PO ×4 (04:41→23:09)
[2020-03-06] MEDS: Lactated Ringers 1,000 ML 150 ML IV (05:04)
[2020-03-06] MEDS: Sodium Citrate/Citric Acid 30 ML UDC PO (05:31)
[2020-03-06] MEDS: Cefazolin 2 GM in 0.9% Normal Saline 100 ML IV (06:00)
--- NOTE | 2020-03-06 06:11 | HP.PCM_ITS ---
History and Physical Date of Admission: 03/06/20 History and Physical Date of Admission: 03/08/20 HPI: The patient is a 29 year old female presenting for pre-operative visit. She is scheduled for , for previous c/s on 02/07/2020. Procedure discussed along with risks, benefits and complications. Other alternatives discussed for management. Consent form signed? Yes. PAST MEDICAL HISTORY PAST SURGICAL HISTORY CURRENT MEDICATIONS PERSONAL HISTORY: SOCIAL HISTORY FAMILY HISTORY GENERAL: denies fevers or chills ENDOCRINOLOGY: has not been on steroids Cardiology : denies palpitations or chest pain Respiratory: denies SOB or cough Hematology: denies history of prolonged bleeding or easy bruising or VTE Allergy: Denies history of personal or family history of allergy to anesthesia PHYSICAL EXAMINATION: VITALS: Blood pressure 110/74, weight 195 lb (88.5 kg), last menstrual period 06/15/2019, not currently . GENERAL: The patient is well nourished, well hydrated in no acute distress. , The patient is oriented to time, place, and person. NECK: Supple. No lynphadenopathy, normal thyroid, no thyromegaly. LUNGS: Clear to auscultation bilaterally. no wheezes, rhonchi or rales HEART: Regular rate and rhythm, Normal heart sounds and No murmurs or gallops abd: soft, nontender, gravid, appropriate for gestational age ext- trace edema IMPRESSION: 29 YOF w/ Estimated Date of Delivery: 03/13/20 PLAN: The risks/benefits/alternatives and personal involved for the planned c- section and nexplanon insertion were reviewed with the patient. Her questions were answered to her satisfaction and she desires to proceed. Consent was signed. I reviewed with her postop instructions and expectations. I have reviewed and updated past medical and surgical history, medications and allergies This H&P was completed in my office on 03/02/2020. UPDATE- patient w/ SROM today 03/06/2020 @ 39 0/7 weeks, so will proceed w/ repeat c/s today.
--- NOTE | 2020-03-06 06:55 | PCM.OPRPT ---
Delivery Classification: Scheduled Final SHANELLE: 03/13/20 Final SHANELLE Source: US <20 weeks Gestational age: 39 Weeks and 0 Days export administrator: Esperanza Garner Type of Anesthesia:: Spinal Special Medications: duramorph Implants Used: none Date of Procedure: 03/06/20 Pre-Operative Diagnosis: Premature rupture of membranes, previous c/s Post-Operative Diagnosis: same Description of Procedure: The patient was taken to the operating room. She was prepped and draped in the dorsal supine position with a leftward tilt. A Pfannenstiel skin incision was made approximately 2 cm above the symphysis pubis and carried through to underlying layer fascia with the scalpel. The fascia was incised incised in the midline and extended laterally with the Marie scissors. The fascia was dissected off the rectus muscles with blunt and sharp dissection. The rectus muscles were in the midline and the peritoneum was entered bluntly. The peritoneal incision was stretched and the bladder blade was placed. The uterine incision was made in a low transverse fashion with the scalpel and extended superiorly and inferiorly with blunt dissection. Clear fluid returned. The infant's head was brought to the incision in the flexed position and delivered without difficulty. The remainder of the infant was delivered with gentle traction and fundal pressure in the standard fashion. The mouth and nares were bulb suctioned. The cord was clamped and cut as the infant was stimulated. Cord clamping was delayed. The infant was handed off to the waiting nursing staff. The placenta was delivered with fundal massage and gentle traction in the standard fashion. The uterus was exteriorized and cleared of all clots and debris. The cervix was dilated with a ring forcep. The uterine incision was closed with #1 Vicryl in a running locked fashion. A second layer of the same suture was used in an imbricating fashion. The incision was examined and was found to be hemostatic. The uterus was placed back into the peritoneal cavity and hemostasis was again confirmed. The rectus muscles were examined and any bleeding was Bovie cauterized. The parietal peritoneum and rectus muscles were closed en bloc with an 0 Vicryl running suture. The surgical teams outer gloves were then changed. The rectus fascia was examined and any bleeding was Bovie cauterized and the rectus fascia was closed with #1 PDS suture in a running standard fashion. The subcutaneous tissue was examining and any bleeding was Bovie cauterized. The subcutaneous tissue was reapproximated with 3-0 Vicryl suture. The skin was closed in a subcuticular fashion by the BUTCHER'S ASSISTANT with me present in the labor and delivery suite. Skin glue was placed over the incision and no bandage was placed due to patient's tape allergy. I performed the remainder of the procedure with assistance. All sponge, lap, and needle counts were correct. The patient was taken to her room for recovery in a stable condition. Amniotic Membrane Rupture Type: Spontaneous Amniotic Fluid Description: Clear Placenta Disposition: [facility] Specimen(s) sent to pathology: none Drain: [place] to straight drain Fluids Replaced: 1500 Cord Entanglement: None Cord Vessel Description: 3 Vessels Esitmated Blood Loss (ml): 700 Gender: Female - [place], 7lb (1 minute): 8 (5 minute): 9 Antibiotic Given: Ancef 2 grams IV x1, Zithromax 500 mg/5 mL X1 Complications: None - Admit VTE Documentation VTE Present on Admission: No VTE Mechan Device Prophylaxis: SCD's VTE Pharm Prophylaxis ordered?: Yes
[2020-03-06] MEDS: Oxytocin 30 units/NS 500 ml 30 UNITS/500 ML IV.SOLN 167 UNITS IV (07:20)
[2020-03-06] MEDS: Lactated Ringers 250 ML 500 ML IV (07:30)
[2020-03-06] MEDS: Lactated Ringers 1,000 ML 100 ML IV ×2 (10:41→19:49)
[2020-03-06] MEDS: Lactated Ringers 500 ML 999 ML IV ×2 (11:25→14:03)
[2020-03-06] MEDS: Ondansetron 4 MG/2 ML Vial IV (12:01)
[2020-03-06] MEDS: Senna/Docusate Sodium 1 Tablet PO (16:20)
[2020-03-06] MEDS: Ketorolac 30 MG/ML Syringe IV ×2 (16:21→23:10)
--- NOTE | 2020-03-06 16:40 | CASEMGMT ---
Social Work Brief Assessment Labor and Delivery Unit [address] Address[address] [id number] Phone number: [phone] Date of Referral/Notification: 03/06/2020 Time of Referral: 1406 Referred By: Dr. Keyla Soto Date of Intervention: 03/06/2020 Time of Intervention: 1630 Reason for Referral: Maternal history of anxiety, depression, and bipolar disorder Informant: Medical record and mother of baby (MOB) Amber Navarrete; father of baby (FOB) Gilbert also present and participating in parts of conversation. History: ROBERTO is a 29-year-old female who is to the FOB who is 36 years old. They were February 26, 2019 but have been together since 2018. baby who was delivered today via unscheduled is to be named Carlotta. Other children in the home include: Sylvester Navarrete (born 03.29.2019) and Sachin Dial (bon 10.16.2011). Sachin does go to his father's every other weekend for visitation. MOB works at [employer]. FOB works at [employer]. MOB had care started at 9 weeks gestation. MOB and FOB both report this was planned, as both wanted children close together. Both parents report intention for ROBERTO to get on control prior to leaving the hospital and to wait at least 2 years before considering another child. ROBERTO reports to be active with job and family services for food and medical and then also with [facility]. MOB denies any children services history. Denies any legal history. No reports or indication of drug use. ROBERTO had a negative drug screen on 08/12/2019. ROBERTO has a history of depression, anxiety, ADHD, and bipolar disorder. There is a history of depression after the first baby. History of treatment with Aretha Reid at the counseling center with a history of treatment with Prozac, Trileptal, Tegretol, and lorazepam. ROBERTO denies treatments with medication at all during this . There is a family history of the patient's brother having 5 4 disorder and then the patient/MOB son having ADD/ADHD. Assessment: Met with the MOB and FOB in the room. Father of baby phone call from work, so during this time we will was able to speak with MOB one-on-one. Did write out on a piece of paper question regarding domestic violence concerns. ROBERTO denies any type of domestic violence or safety concerns with the FOB. MOB reports to have all needed supplies to care for her children including enough sleep sleep spaces for all. MOB plans to use a crib and bassinet. MOB reports to have adequate support at home as her in-laws live next-door and then the MOB parents and sister live [address]. MOB already has childcare in place, and plans to return to work after maternity leave. FOB will be taking 2 weeks off of work to help with the transition home with a new baby and also a almost 1-year-old at home. ROBERTO denies any concerns regarding her mental health at this time. Reports she would talk to her mother if symptoms start occurring. Also consider going back to the counseling center if the need arises. This fiction and nonfiction prose writer observed MOB to breast-feed the baby, and handled the baby appropriately and gently. MOB voices to have a positive connection with the baby already. Both MOB and FOB deny any concerns with home-going. MOB declines any referrals to help me grow or early Headstart. Broached depression and anxiety, and increased risk with personal history and closely spaced pregnancies. Provided MOB with a [facility] resource list which includes mental health resources as well as a mood and anxiety disorder packet. Information provided on safe sleeping and shaking baby prevention. Plan: MOB and will discharge home with support from the FOB. Community resource information has been provided. No other social sciences lecturer are indicated at this time, however social work does remain available should concerns arise during this hospitalization. -ANGELICA Oliveira, XM1 TANK DRIVER *Information documented in this assessment generated with [employer]*
[2020-03-06] MEDS: Enoxaparin 40 MG/0.4 ML Syringe SC (19:46)
[2020-03-07 04:18] VITALS: BP 110/70; PULSE 74; RESP 16; TEMP 36.5
[2020-03-07] MEDS: Acetaminophen 500 MG Tablet 1000 MG PO ×3 (04:43→17:22)
[2020-03-07] MEDS: Ketorolac 30 MG/ML Syringe IV (04:45)
[2020-03-07] MEDS: 0.9% Saline Lock 10 ML Syringe IV (04:46)
[2020-03-07 05:25] LABS: Hematocrit 29.1 % (37-47); Hemoglobin 9.3 g/dL (12.0-15.0); Mean Corpuscular Hgb 27.9 pg (27.0-32.0); Mean Corpuscular Volume 87.4 fL (81-99); Platelet Count 209 K/mm3 (150-450); RBC Distribution Width CV 14.3 % (11.6-14.6); RBC Distribution Width SD 44.2 fl (35.1-43.9); Red Blood Count 3.33 M/mm3 (4.2-5.4); White Blood Count 7.9 K/mm3 (4.4-11.0)
--- NOTE | 2020-03-07 06:01 | NURSING ---
0500- Pt. requests IV come out because it is tender and hurting. Requests switch to oral pain medication when next dose is due.
--- NOTE | 2020-03-07 09:22 | PCM.PN.OB ---
Subjective: pt seen at bedside, doing well. pt reports good pain control. Lochia mild. voiding well, tolerating regular diet. pt requesting dc home today and nexplanon placement. - Physical Exam Vitals/I&O's: Vital Signs Temp Pulse Resp BP Pulse Ox 97.7 F L 74 16 110/70 97 03/07/20 04:18 03/07/20 04:18 03/07/20 04:18 03/07/20 04:18 03/06/20 23:12 Oxygen Delivery Method Room Air Weight: 88.904 kg Body Mass Index (BMI) 38.2 Intake and Output for Last 24 Hours 03/05/20 03/06/20 03/07/20 23:59 23:59 23:59 Intake Total 5002.41 / 5002.41 485 / 485 Output Total 1116 / 1116 450 / 450 Balance 3886.41 / 3886.41 35 / 35 General: Alert, Oriented x3 Abdomen: Soft, Non-Distended, - - fundus firm. incision site dry. Neurological: Cranial nerves II-XII grossly intact Laboratory Results 03/07/20 05:20: WBC 7.9, RBC 3.33 L, Hgb 9.3 L, Hct 29.1 L, MCV 87.4, MCH 27.9, MCHC 32.0, RDW Std Deviation 44.2 H, RDW Coeff of Lissette 14.3, Plt Count 209, MPV 9.0 Current Medications Acetaminophen (Acetaminophen 500 Mg Tablet) 1,000 mg PO Q6H [facility] Last Admin: 03/07/20 04:43 Dose: 1,000 mg Documented by: Bisacodyl (Bisacodyl 10 Mg Suppository) 10 mg RECTAL UD PRN PRN Reason: If no BM Enoxaparin Sodium (Enoxaparin 40 Mg/0.4 Ml Syringe) 40 mg SC DAILY [facility] Last Admin: 03/06/20 19:46 Dose: 40 mg Documented by: Hydrocortisone (Hydrocortisone 2.5% Crm) 1 applic TOPICAL TID PRN PRN; Protocol PRN Reason: Discomfort Ketorolac Tromethamine (Ketorolac 30 Mg/Ml Syringe) 30 mg IV Q6H [facility] Stop: 03/07/20 10:31 Last Admin: 03/07/20 05:28 Dose: Not Given Documented by: Methylergonovine Maleate (Methylergonovine 0.2 Mg/Ml Ampul) 0.2 mg IM X1 PRN PRN Reason: Uterine Atony Naloxone HCl (Naloxone 0.4 Mg/Ml Syringe) 0.02 mg IV Q1M PRN PRN Reason: RR <10 and pt unresponsive Naproxen (Naproxen 250 Mg Tablet) 500 mg PO Q8H [facility] Ondansetron HCl (Ondansetron 4 Mg/2 Ml Vial) 4 mg IV Q4H PRN PRN PRN Reason: Nausea Last Admin: 03/06/20 12:01 Dose: 4 mg Documented by: Oxycodone HCl (Oxycodone 5 Mg Tablet) 5 - 10 mg PO Q4H PRN PRN PRN Reason: Pain Score 4-10 Prochlorperazine Edisylate (Prochlorperazine 10 Mg/2 Ml Vial) 10 mg IV Q6H PRN PRN PRN Reason: NAUSEA Senna/Docusate Sodium (Senna/Docusate Sodium 1 Tablet) 0 tablet PO DAILY [facility] Last Admin: 03/06/20 16:20 Dose: 2 tablet Documented by: Simethicone (Simethicone 80 Mg Tablet) 80 mg PO PCHS PRN PRN Reason: Indigestion/stomach pain Sodium Chloride (0.9% Saline Lock 10 Ml Syringe) 5 - 15 ml IV UD PRN PRN Reason: SALINE FLUSH Last Admin: 03/07/20 04:46 Dose: 10 ml Documented by: Medical Necessity - Tobacco Use Smoking Status: Never smoker Assessment/Plan All Active Problems History of delivery affecting (Acute) Morbid obesity (Acute) Raynaud disease (Acute) HPV (human papilloma virus) infection (Acute) Headache (Acute) Proteinuria affecting (Acute) 33 weeks gestation of (Acute) POD#1 doing well routine care pain mgmt ambulation dc home nexplanon placement prior to dc home
[2020-03-07] MEDS: Enoxaparin 40 MG/0.4 ML Syringe SC (09:43)
[2020-03-07] MEDS: Senna/Docusate Sodium 1 Tablet PO (09:43)
--- NOTE | 2020-03-07 09:53 | DCINST_ITS ---
Discharge Diet: No Restrictions Discharge Activity: Return to Normal Activity, May Not Drive - for 2 weeks, May not drive while taking narcotic pain medications., May Shower, May Take a Tub Bath - in 7 days. May resume sexual activity in: 4-6 weeks Lifting Restrictions: 20 pounds Additional Activity Instructions:: Nothing in the vagina for 4-6 weeks. You may return to work/school in 6 weeks. Call your doctor if your incision/area has: Continuous Slow Oozing, Sudden Increased Bleeding, Increased Pain/ Swelling, Increased Redness, Foul Smelling Discharge Call your doctor if you observe: Fever of 101 or Higher, Using more than one pad per hour - for 2 hours Suture Line Care: Avoid Pulling/Pushing, Avoid Pinching/Bending Cleanse incision/area with: Keep Dressing Clean & Dry Additional Instructions: If you experience any of the following, contact your healthcare provider. * Bleeding that soaks a pad every hour for 2 hours * Fever 100.4 or higher * Unrelieved incision or abdominal pain * Swelling, redness, discharge or bleeding from your incision or episiotomy site * Your incision begins to separate * Problems urinating (including inability to urinate or burning while urinating). * Visual changes * Severe headache * Flu-like symptoms * Pain or redness in one of both of your breasts * Pain, warmth, tenderness or swelling in your legs, especially the calf area * Frequent nausea and vomiting * Symptoms of depression or anxiety If you experience any of the following, call 911 or go to the nearest Emergency Room. * Chest pain * Problems breathing * Seizure activity * Partial or complete paralysis of a body part, slurred speech, weakness or drooping of the face, or a sudden inability to walk or hold your balance Allergies/Adverse Reactions: Allergies sulfamethoxazole [From ] Allergy (Mild, Verified 03/06/20 02:49) Rash rash adhesive tape Allergy (Verified 03/06/20 02:49) Rash trimethoprim [From ] Allergy (Verified 03/06/20 02:49) Rash Medications to take at Discharge Vits [Prenatabs FA ] 1 tablet PO DAILY 07/24/18 Acetaminophen [Tylenol] 650 mg PO PRN PRN 02/06/19 Omeprazole [Prilosec] 20 mg PO DAILY PRN 01/02/20 Acetaminophen [Tylenol] 1,000 mg PO Q6H #60 tab 03/07/20 Docusate Sodium [Colace] 100 mg PO DAILY #20 cap 03/07/20 Naproxen [Naprosyn] 500 mg PO Q8H #60 tab 03/07/20 Oxycodone [Oxyir] 5 mg PO Q6H PRN PRN 7 Days #10 tab 03/07/20 SimETHICONE [Mylicon] 80 mg PO 4X/DAY #30 tab 03/07/20 The following prescriptions were given: Docusate Sodium [Colace] 100 mg PO DAILY #20 cap Transmission Status: Pending to [facility] 181 SimETHICONE [Mylicon] 80 mg PO 4X/DAY #30 tab Transmission Status: Pending to [facility] 181 Naproxen [Naprosyn] 500 mg PO Q8H #60 tab Transmission Status: Pending to [facility] 181 Oxycodone [Oxyir] 5 mg PO Q6H PRN PRN 7 Days #10 tab PRN Reason: Pain Score 4-10 Transmission Status: [facility] to [facility] Acetaminophen [Tylenol] 1,000 mg PO Q6H #60 tab Transmission Status: P[facility] to [facility] Follow-Up: Call to make an appointment with your doctor for an incision check in 1-2 weeks. You will also need a 6 week post- follow up appointment. Test results from this visit will be discussed in further detail at your follow- up appointment, if applicable. Please Follow Up With: Sarah Stokes MD - Call to make an appointment for an incision check in 1-2 [phone] When: You will need a post- check in 6 weeks. Primary Care Physician: Ben Holt DO [Primary Care Provider] -
[2020-03-07 10:00] VITALS: BP 103/65; PULSE 73; RESP 16; TEMP 36.5
--- NOTE | 2020-03-07 10:04 | OP.PCM_ITS ---
Report of Operation Date of Procedure: 03/07/20 - 1000 Pre-Operative Diagnosis: desires contraception- Nexplanon insertion Post-Operative Diagnosis: same Surgery/Procedure Performed:: nexplanon placement Description of Surgical Findings:: Placed in left arm without complication Type of Anesthesia:: Local - 1% lidocaine- 3cc placed. Specimen's removed: none Estimated Blood Loss (mL): none Description of Procedure: Pt desires contraception prior to dc home from [facility] after delivery. Consent obtained- Proper site identified. Pt identified by name and . Left arm bent- cleaned with betadine- 3cc 1% lidocaine placed. Nexplanon placed without difficulty. Pt tolerated well. Steri strip and dressing applied. Grafts/Implants Used: Nexplanon - Complications none - Admit VTE Documentation VTE Present on Admission: No VTE Pharm Prophylaxis ordered?: No
[2020-03-07] MEDS: Etonogestrel 68 MG IMPLANT SQ (10:35)
[2020-03-07] MEDS: Naproxen 250 MG Tablet 500 MG PO (13:09)
[2020-03-07 15:04] VITALS: BP 110/72; PULSE 74; RESP 16; TEMP 36.6
--- NOTE | 2020-03-07 16:46 | DS.PCM_ITS ---
Discharge Summary Date of Admission: 03/06/20 Date of Discharge: 03/07/20 Summary: pt was admitted to [facility] for SROM at 39 weeks gestation- pt was scheduled for repeat C/S. pt underwent an uncomplicated Low Transverse CS without complication and had a normal post op course. pt requested dc home on POD#1 . Nexplanon placed in arm prior to dc home for contraception. - Physical Exam Vitals/I&O's: Vital Signs Temp Pulse Resp BP Pulse Ox 97.8 F 74 16 110/72 97 03/07/20 15:04 03/07/20 15:04 03/07/20 15:04 03/07/20 15:04 03/06/20 23:12 Oxygen Delivery Method Room Air Weight: 88.904 kg Body Mass Index (BMI) 38.2 Intake and Output for Last 24 Hours 03/05/20 03/06/20 03/07/20 23:59 23:59 23:59 Intake Total 5002.41 / 5002.41 485 / 485 Output Total 1116 / 1116 450 / 450 Balance 3886.41 / 3886.41 35 / 35 Laboratory Results 03/07/20 05:20: WBC 7.9, RBC 3.33 L, Hgb 9.3 L, Hct 29.1 L, MCV 87.4, MCH 27.9, MCHC 32.0, RDW Std Deviation 44.2 H, RDW Coeff of Lissette 14.3, Plt Count 209, MPV 9.0 Current Medications Acetaminophen (Acetaminophen 500 Mg Tablet) 1,000 mg PO Q6H [facility] Last Admin: 03/07/20 10:35 Dose: 1,000 mg Documented by: Bisacodyl (Bisacodyl 10 Mg Suppository) 10 mg RECTAL UD PRN PRN Reason: If no BM Enoxaparin Sodium (Enoxaparin 40 Mg/0.4 Ml Syringe) 40 mg SC DAILY [facility] Last Admin: 03/07/20 09:43 Dose: 40 mg Documented by: Hydrocortisone (Hydrocortisone 2.5% Crm) 1 applic TOPICAL TID PRN PRN; Protocol PRN Reason: Discomfort Methylergonovine Maleate (Methylergonovine 0.2 Mg/Ml Ampul) 0.2 mg IM X1 PRN PRN Reason: Uterine Atony Naloxone HCl (Naloxone 0.4 Mg/Ml Syringe) 0.02 mg IV Q1M PRN PRN Reason: RR <10 and pt unresponsive Naproxen (Naproxen 250 Mg Tablet) 500 mg PO Q8H [facility] Last Admin: 03/07/20 13:09 Dose: 500 mg Documented by: Ondansetron HCl (Ondansetron 4 Mg/2 Ml Vial) 4 mg IV Q4H PRN PRN PRN Reason: Nausea Last Admin: 03/06/20 12:01 Dose: 4 mg Documented by: Oxycodone HCl (Oxycodone 5 Mg Tablet) 5 - 10 mg PO Q4H PRN PRN PRN Reason: Pain Score 4-10 Prochlorperazine Edisylate (Prochlorperazine 10 Mg/2 Ml Vial) 10 mg IV Q6H PRN PRN PRN Reason: NAUSEA Senna/Docusate Sodium (Senna/Docusate Sodium 1 Tablet) 0 tablet PO DAILY [facility] Last Admin: 03/07/20 09:43 Dose: 1 tablet Documented by: Simethicone (Simethicone 80 Mg Tablet) 80 mg PO PCHS PRN PRN Reason: Indigestion/stomach pain Sodium Chloride (0.9% Saline Lock 10 Ml Syringe) 5 - 15 ml IV UD PRN PRN Reason: SALINE FLUSH Last Admin: 03/07/20 04:46 Dose: 10 ml Documented by:
== END 2020-03-07 18:30 | disposition home or self-care (01) | DRG 540 ==
LOC: WPOUT 02:57 → WP 02:57
PROVIDERS: Admitting Provider Obstetrics & Gynecology; PCP Student in an Organized Health Care Education/Training Program; Referring Provider Obstetrics & Gynecology; Visit Provider Obstetrics & Gynecology
DX: O82 Encounter for cesarean delivery without indication (principal); Z3A.39 39 weeks gestation of pregnancy; Z37.0 Single live birth; O36.8130 Decreased fetal movements, third trimester, not applicable or unspecified
CPT/HCPCS: 59025; 59050; 84112; 85025; 85027; 86850; 86900; 86901; 99218; J7120; A4216; G0378; J2405

== ENCOUNTER 2024-07-14 12:43 | Emergency (ER) | payer MEDICAID, SELFPAY ==
[2024-07-14 12:43] VITALS: BP 132/86; PULSE 76; RESP 18; TEMP 36.9; O2SAT 100; BMI 38.7
[2024-07-14 13:18] LABS: Bacteria 0 SEEN /hpf (None Seen); Mucous, Urine 0 SEEN /hpf (<or=2+); Red Blood Cells-Urine 0 SEEN /hpf (0-5); White Blood Cells 0 SEEN /hpf (0-5)
[2024-07-14 13:24] LABS: Color, Urine Yellow (Yellow); Glucose, Dipstick Normal (Normal); Ketone-Dipstick Negative (Negative); Leukocyte Esterase-Dipstick Negative /ul (Negative); Nitrite-Dipstick Negative (Negative); Occult Blood-Urine Negative /ul (Negative); Protein-Dipstick Negative (Negative); Specific Gravity, Urine 1.005 (1.002-1.030); Urine Bilirubin Dipstick Negative (Negative); Urine Clarity Clear (Clear); Urine Urobilinogen Normal (Normal)
[2024-07-14 13:49] LABS: Absolute Lymphocyte Count 2.07 X10^3/uL (0.83-4.51); Absolute Neutrophil Count 2.9 X10^3/uL (2.0-7.7); Basophil# 0.03 X10^3/uL; Basophil% 0.6 % (0-1); Eosinophil# 0.13 X10^3/uL; Eosinophils% 2.4 % (0-5); Hematocrit 38.5 % (37-47); Lymphocyte # 2.07 X10^3/ul (0.83-4.51); Lymphocyte % 38.1 % (19-41); Mean Corp Hgb Conc 33.8 g/dL (32-36); Mean Corpuscular Hgb 28.4 pg (27.0-32.0); Mean Corpuscular Volume 84.1 fL (81-99); Mean Platelet Vol. 9.7 fl (6.2-12.0); Monocyte# 0.26 X10^3/uL; Monocyte% 4.8 % (0-10); NRBC Flagged by Analyzer 0 % (0-5); Neutrophil # 2.92 X10^3/uL (2.7-7.7); Neutrophil % 53.7 % (47-70); Platelet Count 281 K/mm3 (150-450); RBC Distribution Width CV 12.9 % (11.6-14.6); RBC Distribution Width SD 39.6 fl (35.1-43.9); Red Blood Count 4.58 M/mm3 (4.2-5.4); White Blood Count 5.4 K/mm3 (4.4-11.0)
[2024-07-14 13:55] LABS: Squamous Epithelial Cells - UA 0-5 SEEN /hpf (5-10)
[2024-07-14 14:08] LABS: ALB/GLOB Ratio 1.4 RATIO (0.9-2.4); AST(SGOT) 18 U/L (<=31); Alanine Aminotransfer ALT/SGPT 16 U/L (<=34); Albumin, Serum 4.3 g/dL (3.5-5.0); Alkaline Phosphatase 107 U/L (35-104); Anion Gap 10 (5-15); BUN 6 mg/dL (4-19); BUN/Creat Ratio 8.8 RATIO (10-20); Calcium,Total 9.1 mg/dL (7.6-11.0); Carbon Dioxide 25.4 mmol/L (21.0-32.0); Chloride 104 mmol/L (98-108); EST Glomerular Filtration Rate 117 (>60); Estimated Creatinine Clearance 114.19 ml/min (50-250); Glucose 96 mg/dL (70-99); Potassium 3.4 mmol/L (3.3-5.1); Protein, Total 7.2 g/dL (5.9-8.4); Sodium Level 139 mmol/L (133-145); Total Bilirubin 0.22 mg/dL (0.00-1.30)
--- NOTE | 2024-07-14 14:28 | CT_ITS ---
PROCEDURE: ABDOMEN/PELVIS WITHOUT CONT, 07/14/2024 REASON FOR EXAM: RIGHT FLANK PAIN TECHNIQUE: CT abdomen and pelvis was performed without IV contrast. Multiplanar reformats were generated. IV contrast: None. RADIATION DOSE SUMMARY: CTDlvol: 16.28 mGy DLP: 825.44 mGycm One or more dose reduction techniques were used (e.g., Automated exposure control, adjustment of the mA and/or kV according to patient size, use of iterative reconstruction technique). COMPARISON: Unavailable FINDINGS: Note that evaluation of the abdominopelvic viscera, vasculature, and remaining soft tissues is limited in the absence of IV contrast. Lung bases: Granuloma on the LEFT. Minimal atelectasis/scarring.. Liver: Unremarkable. Spleen: Unremarkable. Gallbladder: Gallbladder not identified, likely post cholecystectomy however there are no visible surgical clips.. Pancreas: Unremarkable. Adrenals: Unremarkable. Kidneys: Unremarkable. Bowel: Unremarkable. Normal caliber largely gas-filled appendix. Lymph nodes: Unremarkable. Vasculature: Unremarkable. Peritoneum: Trace pelvic free fluid. Bladder: Borderline mild bladder wall thickening versus underdistention. Reproductive Organs: Hysterectomy. Body Wall: Unremarkable. Bones: Trace scoliosis may be positional.. CT/Abdomen/Pelvis without Cont IMPRESSION: 1. Borderline mild bladder wall thickening versus underdistention. Correlate f or mild cystitis. 2. No hydronephrosis or ureteral calculus identified. 3. Trace pelvic free fluid, potentially physiologic in this demographic. 4. Additional description as above. Reading Location: [id number]
--- NOTE | 2024-07-14 14:29 | EX.ED.DYSGE1 ---
HPI History of Present Illness Chief Complaint: Flank Pain Informant: patient Onset/Context/Timing Onset: Days (3) Context: Sudden Onset Timing: Intermittent Quality: Aching, sharp Location: Right flank Worsened by: Urination Relieved by: Nothing Narrative Narrative: Patient presents with right flank pain and that has been intermittent over the past 3 days. Patient describes it as aching and sharp. Patient states she has some pressure in her suprapubic area. Patient states it is mainly over her right lower back. Patient states her pain is worse with urination. Patient states she has some abdominal cramping. Patient denies any nausea or vomiting. Patient states she noted some blood in her urine a couple days ago but states this has cleared up. Patient denies any fevers or chills. [facility] Medical History (Updated 07/14/24 @ 16:[address] Braulio Puente, DO) Eosinophilic esophagitis Contact dermatitis FH: cholecystectomy Medical History no medical history Home Medications ?Medication ?Instructions ?Recorded ?Last Taken ?Type vits,calcium no.78-iron 1 tab PO DAILY vitamin 07/24/18 03/05/20 History fumarate-folic acid 29 mg-1 mg tablet (Prenatabs FA) acetaminophen 325 mg capsule 650 mg PO PRN PRN Pain Or Fever 02/06/19 01/02/20 History omeprazole 20 mg capsule,delayed 20 mg PO DAILY PRN gerd 01/02/20 01/26/20 History release acetaminophen 500 mg tablet 1,000 mg (2 x 500 mg) PO Q6H #60 03/07/20 Unknown Rx tabs docusate sodium 100 mg capsule 100 mg PO DAILY #20 caps 03/07/20 Unknown Rx naproxen 250 mg tablet 500 mg (2 x 250 mg) PO Q8H #60 tabs 03/07/20 Unknown Rx simethicone 80 mg chewable tablet 80 mg PO 4X/DAY #30 tabs 03/07/20 Unknown Rx Allergy/AdvReac Type Severity Reaction Status Date / Time sulfamethoxazole (From Allergy Mild Rash Verified 07/14/24 12:45 Sept) adhesive tape Allergy Rash Verified 07/14/24 12:45 trimethoprim (From ) Allergy Rash Verified 07/14/24 12:45 wheat Allergy Angioedema Verified 07/14/24 12:45 Family History no significant family his Surgical History (Updated 07/14/24 @ 15:[address] Braulio Puente DO) Hx of foot surgery Hx of cholecystectomy Previous section Hx of tonsillectomy H/O: hysterectomy Surgical History no surgical history Social History Smoking Status: Never smoker ROS ROS ED Constitutional Constitutional ED: Denies chills or fever(s) Eyes Eyes: Denies blurry vision or change in vision ENT ENT ED: Denies rhinorrhea or sore throat Cardiovascular Cardiovascular: Denies chest pain or palpitations Respiratory/Chest Respiratory/Chest: Denies cough or dyspnea Gastrointestinal Gastrointestinal: Reports abdominal pain; Denies nausea or vomiting Genitourinary Genitourinary ED: Reports hematuria; Denies dysuria Musculoskeletal Musculoskeletal: Reports back pain; Denies neck pain Integumentary Denies abscess or rash Neurologic Neurologic: Denies headache(s) or weakness Allergic/Immunologic Allergic/Immunologic ED: Denies mouth swelling or urticaria EXAM Physical Exam Const Vital Signs: 07/14/24 12:43 07/14/24 14:43 07/14/24 16:07 Temperature 98.4 F 98 F Temperature Source Oral Pulse Rate 76 85 50 L Respiratory Rate 18 16 14 Blood Pressure 132/86 H 136/99 H 152/86 H Blood Pressure Mean 101 111 108 Pulse Ox 100 100 100 Oxygen Delivery Method Room Air Positive well nourished and well developed Constitutional Narrative: BMI is 38.7 General Appearance ED: well developed and NAD HEENT Reports moist mucous membranes Neck supple and no JVD Resp normal respiratory effort and clear to auscultation bilaterally Cardio regular rate and regular rhythm GI non-distended Palpation: soft and tender suprapubic; Negative for guarding or rebound tenderness present Back/Spine General Back: CVA tenderness right Neuro oriented x3, CN's II-XII intact bilaterally and no sensory deficits noted Sensorium / Orientation: alert Motor Exam: strength 5/5 throughout Psych mental status grossly normal MDM MDM MDM Narrative Medical decision making narrative: Differential diagnosis includes colitis, ureteral calculus, pyelonephritis, colitis, bowel obstruction, perforation, and urinary tract infection. CT scan of the abdomen and pelvis will be obtained to assess for ureteral calculus, bowel obstruction, and perforation. CBC will be obtained to assess for leukocytosis and anemia. Comprehensive metabolic profile will be obtained to assess for hepatic function, renal function, and electrolyte abnormality. Urinalysis will be obtained to assess for urinary tract infection and hematuria. History & Record Review Additional record(s) reviewed:: Prior labs Lab Data Attestation: I reviewed the patient's lab results. Lab results narrative: CBC was reviewed and was within normal limits. Comprehensive metabolic profile was reviewed and was within normal limits. Urinalysis was reviewed. There is no evidence of urinary tract infection or hematuria. Labs: Laboratory Results - last 24 hr 07/14/24 07/14/24 12:50 13:30 WBC 5.4 RBC 4.58 Hgb 13.0 Hct 38.5 MCV 84.1 MCH 28.4 MCHC 33.8 RDW Std Deviation 39.6 RDW Coeff of Lissette 12.9 Plt Count 281 MPV 9.7 Immature Gran % (Auto) 0.400 Neut % (Auto) 53.7 Lymph % (Auto) 38.1 [place] % (Auto) 4.8 Eos % (Auto) 2.4 Baso % (Auto) 0.6 Absolute Neuts (auto) 2.9 Absolute Lymphs (auto) 2.07 Nucleated RBC % 0 Sodium 139 Potassium 3.4 Chloride 104 Carbon Dioxide 25.4 Anion Gap 10 BUN 6 Creatinine 0.70 Estim Creat Clear Calc 114.19 Est GFR (MDRD) Non-Af 117 BUN/Creatinine Ratio 8.8 L Glucose 96 Calcium 9.1 Total Bilirubin 0.22 AST 18 ALT 16 Alkaline Phosphatase 107 H Total Protein 7.2 Albumin 4.3 Globulin 3.0 Albumin/Globulin Ratio 1.4 Urine Color Yellow Urine Clarity Clear Urine pH 7.0 Ur Specific [place] 1.005 Urine Protein Negative Urine Glucose (UA) Normal Urine Ketones Negative Urine Occult Blood Negative Urine Nitrite Negative Urine Bilirubin Negative Urine Urobilinogen Normal Ur Leukocyte Esterase Negative Urine RBC 0 SEEN Urine WBC 0 SEEN Ur Squamous Epith Cells 0-5 SEEN Urine Bacteria 0 SEEN Urine Mucus 0 SEEN Radiography Diagnostic Testing: Clinical Impression(s) from Imaging Studies Abdomen/Pelvis CT 07/14/24 14:28 IMPRESSION: 1. Borderline mild bladder wall thickening versus underdistention. Correlate for mild cystitis. 2. No hydronephrosis or ureteral calculus identified. 3. Trace pelvic free fluid, potentially physiologic in this demographic. 4. Additional description as above. Reading Location: [facility] CT scan of the abdomen and pelvis was obtained. There is no evidence of ureteral calculus or hydronephrosis. There is a trace amount of free fluid in the pelvis. There is no other acute abnormality noted. This was interpreted by the radiologist and was also independently reviewed by myself. Treatment and Re-Evaluation :: Patient was given IV fluids, morphine, and Zofran. Patient was advised of her findings. Patient was instructed to drink plenty of fluids. Patient was instructed to follow-up with her primary care physician in 5 to 7 days. Patient was instructed to return if worse in any way. Patient understood and was agreeable with the plan. All questions were answered. Discharge Plan Triage Chief Complaint: Flank Pain ED Provider: Braulio Puente Dx/Rx/DC Orders Clinical Impression: Acute right flank pain Instructions: ED Flank Pain, Uncertain Cause Prescriptions: No Action vit,[id number] [Prenatabs FA] 1 TABLET tablet 1 tab PO DAILY acetaminophen 325 MG capsule 650 mg PO PRN PRN (Reason: Pain Or Fever) omeprazole 20 MG capsule 20 mg PO DAILY PRN (Reason: gerd) naproxen 250 MG tablet 500 mg PO Q8H Qty: 60 0RF acetaminophen 500 MG tablet 1,000 mg PO Q6H Qty: 60 0RF simethicone 80 MG tablet 80 mg PO 4X/DAY Qty: 30 0RF docusate sodium 100 MG capsule 100 mg PO DAILY Qty: 20 0RF Primary Care Provider: Ben Holt Referrals: Ben Holt DO [Primary Care Provider] - 5-7 Days Print Language: Serbian Disposition Disposition: Home, Self Care Discharge Date/Time: 07/14/24 16:14
[2024-07-14] MEDS: 0.9% Normal Saline (1000mL) 1,000 ML 1000 ML IV (14:39)
[2024-07-14] MEDS: Morphine 4 MG/ML Syringe IV (14:39)
[2024-07-14] MEDS: Ondansetron 4 MG/2 ML Vial IV (14:39)
[2024-07-14 14:43] VITALS: BP 136/99; PULSE 85; RESP 16; O2SAT 100
[2024-07-14 16:07] VITALS: BP 152/86; PULSE 50; RESP 14; TEMP 36.6; O2SAT 100
== END 2024-07-14 16:14 | disposition home or self-care (01) ==
PROVIDERS: Emergency Provider Emergency Medicine; PCP Student in an Organized Health Care Education/Training Program; Visit Provider Emergency Medicine
DX: R10.30 Lower abdominal pain, unspecified (principal); M54.50 Low back pain, unspecified; R30.0 Dysuria; Z90.49 Acquired absence of other specified parts of digestive tract
CPT/HCPCS: 74176; 80053; 81001; 85025; 96361; 96374; 96375; 99283; A4216; J2405